=== PATIENT | female | born 1965 | race Caucasian/White ===

== ENCOUNTER 2016-06-19 12:58 | Emergency (ER) | payer OTHER ==
[~2016-06-19] VITALS: Ht 160 cm; Wt 93.0 kg
[~2016-06-19 12:58] MED LIST: NAPR250T57 PO; PROT40TA PO
[2016-06-19 13:02] VITALS: BP 132/82; PULSE 108; RESP 16; TEMP 99.8; O2SAT 94
[2016-06-19] MEDS ORDERED: HTN MED (13:12)
[2016-06-19] MEDS ORDERED: ONDANSETRON ODT 4 MG TAB PO ONE (13:30)
--- NOTE | 2016-06-19 13:31 | PD ---
HPI Chief Complaint: Cold / Flu Symptoms Time Seen by Provider: 13:11 Travel History International Travel<30 days: No Contact w/Intl Traveler<30days: No Traveled to known affect area: No History of Present Illness HPI 51-year-old female presents with body aches, cough, congestion, nausea and general ill feeling since getting exposed to someone sick at work. She states that she feels worse when she moves around. She denies other modifying factors. She has taken patd-dhp-deeirma medications with moderate relief. She last took something for pain at 430 this am. She denies other concurrent complaints. Duration is 2 days. PFSH Past Medical History Anxiety: No Depression: No Heart Rhythm Problems: No Cancer: No Cardiac Catheterization: No Cardiovascular Problems: No High Cholesterol: No Congestive Heart Failure: No Diabetes: No Diminished Hearing: No Endocrine: No Genitourinary: No Hepatitis: No Hiatal Hernia: No Immune Disorder: No Medical other: Yes (ANEMIA DUE TO DUB) Musculoskeletal: Yes (NECK PAIN) Neurologic: No Psychiatric: No Reproductive: Yes (DUB) Respiratory: No Thyroid Disease: No ?: Not Menopausal: Yes : 1 Para: 1 Miscarriage: 0 : 0 Past Surgical History AICD: No Coronary Artery Bypass Graft: No Gynecologic Surgery: Yes (UTERINE ABLATION AND PARTIAL HYSTERECTOMY LAST YEAR) Hysterectomy: Yes (PARTIAL / 2012) Joint Replacement: No Pacemaker: No Other Surgery: Yes Social History Alcohol Use: No Tobacco Use: No Substance Use: No Allergies-Medications (Allergen,Severity, Reaction): Coded Allergies: No Known Allergies (Unverified , 06/19/16) Reported Meds & Prescriptions Reported Meds & Active Scripts Active Zofran Odt (Ondansetron Odt) 4 Mg Tab 4 Mg SL Q6HR PRN Reported [Htn Med] Review of Systems Except as stated in HPI: all other systems reviewed are Neg Physical Exam Narrative GENERAL: Well-nourished, well-developed patient. Well-appearing Back: No CVA tenderness, no midline pain SKIN: Warm and dry. HEAD: Normocephalic and atraumatic. EYES: No injection or drainage. ENT: No nasal drainage noted. Bilateral TMs clear, posterior oropharynx without exudate or erythema NECK: Supple, trachea midline. No meningeal signs CARDIOVASCULAR: Regular rate and rhythm RESPIRATORY: Breath sounds equal bilaterally. No accessory muscle use. GASTROINTESTINAL: Abdomen soft, non-tender, nondistended. EXTREMITIES: No edema. NEUROLOGICAL: Awake and alert. Motor and sensory grossly within normal limits. Normal speech. Data Data Last Documented VS Vital Signs Date Time Temp Pulse Resp B/P Pulse Ox O2 Delivery O2 Flow Rate FiO2 06/19/16 13:02 99.8 108 16 132/82 94 Orders Chest, Pa & Lat (06/19/16 ) Ondansetron Odt (Zofran Odt) (06/19/16 13:30) Ibuprofen (Motrin) (06/19/16 13:45) MDM Medical Decision Making Medical Screen Exam Complete: Yes Emergency Medical Condition: Yes Medical Record Reviewed: Yes (past history confirmed) Interpretation(s) Last 24 hours Impressions Chest X-Ray 06/19/16 0000 Signed Impressions: Service Date/Time: Sunday, June 19, 2016 13:55 - CONCLUSION: Normal examination. Teri Lucia MD Differential Diagnosis URI, seasonal allergies, pneumonia, gastroenteritis Narrative Course Will check chest x-ray and dose with Zofran and reevaluate cxr no acute, Patient denies any new complaints and states that they are feeling better. Patient happy with care, all questions answered. Patient knows that follow up is incumbent on them and to return to the emergency room immediately if new or worsening symptoms develop. Patient given strict return precautions, vitals reviewed and are normal, agrees to further workup as an outpatient. Diagnosis Primary Impression: Upper respiratory infection Qualified Code: J06.9 - Upper respiratory tract infection, unspecified type Patient Instructions: General Instructions Additional Instructions: return as needed, zofran as needed, alternate tylenol and motrin Med/Other Pt SpecificInfo: Prescription(s) given Scripts Ondansetron Odt (Zofran Odt)4 Mg Tab4 Mg SL Q6HR PRN (Nausea/Vomiting) #10 TAB Prov:Irasema Del Rio MD 06/19/16 Disposition: 01 DISCHARGE HOME Condition: Stable Irasema Del Rio MD Jun 19, 2016 13:31
[2016-06-19] MEDS ORDERED: IBUPROFEN 600 MG TAB PO ONE (13:45)
--- NOTE | 2016-06-19 14:15 | RADHPO ---
EXAM DATE/TIME: 06/19/2016 13:55 [facility] COMPARISON: No previous studies available for comparison. INDICATIONS : Cough, short of breath MEDICAL HISTORY : Hypertension. SURGICAL HISTORY : None. ENCOUNTER: Initial ACUITY: 2 days PAIN SCORE: 0/10 LOCATION: Bilateral chest FINDINGS: PA and lateral views of the chest demonstrate the lungs to be symmetrically aerated without evidence of mass, infiltrate or effusion. The cardiomediastinal contours are unremarkable. Osseous structure s are intact. CONCLUSION: Normal examination. Teri Lucia MD on June 19, 2016 at 14:13 Board Certified Radiologist. This report was verified electronically.
[2016-06-19] MEDS ORDERED: ZOFR4TAB3 SL (14:26)
== END 2016-06-19 14:36 | disposition home or self-care (01) ==
LOC: PHED 12:58
DX: J06.9 Acute upper respiratory infection, unspecified (principal)
CPT/HCPCS: 71020; 99283

== ENCOUNTER 2016-11-03 14:29 | Emergency (ER) | payer OTHER ==
[~2016-11-03] VITALS: Ht 160 cm; Wt 90.4 kg
[~2016-11-03 14:29] MED LIST changes: +HTN MED; -NAPR250T57 PO; -PROT40TA PO; +ZOFR4TAB3 SL
[2016-11-03 14:40] VITALS: BP 126/82; PULSE 131; RESP 16; TEMP 100.4; O2SAT 97
[2016-11-03] MEDS ORDERED: SODIUM CHLOR 0.9% 1000 ML INJ 1,000 ML IV SCH (15:12)
[2016-11-03] MEDS ORDERED: SODIUM CHLORIDE 0.9% FLUSH 10 ML FLUSH IV FLUSH PRN (15:15)
[2016-11-03] MEDS ORDERED: LISI2.5T3 PO ×2 (15:17)
[2016-11-03 15:26] LABS: BLOOD, URINE SMALL (NEG); GLUCOSE,URINE NEG (NEG); KETONE, URINE 40 mg/dL (NEG); NITRITE,URINE NEG (NEG); PH, URINE 5.5 (5.0-8.5)
[2016-11-03 15:27] LABS: AUTOMATED NEUTROPHIL # 12.1 TH/MM3 (1.8-7.7); BASOPHIL % 0.3 % (0.0-2.0); EOSINOPHIL # 0.1 TH/MM3 (0-0.4); EOSINOPHIL % 0.4 % (0.0-4.0); HEMATOCRIT 43.5 % (35.0-46.0); LYMPH % 6.5 % (9.0-44.0); LYMPHOCYTE # 0.9 TH/MM3 (1.0-4.8); MEAN CORPUSCULAR HEMOGLOBIN 27.2 PG (27.0-34.0); MEAN CORPUSCULAR HGB CONC 32.8 % (32.0-36.0); MONO % 5.4 % (0.0-8.0); NEUT % 87.4 % (16.0-70.0); PLATELET COUNT 266 TH/MM3 (150-450); RED BLOOD COUNT 5.24 MIL/MM3 (4.00-5.30); RED CELL DISTRIBUTION WIDTH 13.5 % (11.6-17.2); WHITE BLOOD COUNT 13.8 TH/MM3 (4.0-11.0)
[2016-11-03 15:28] LABS: HEMO FLAGS DIFF FINAL
[2016-11-03 15:34] VITALS: O2SAT 98
--- NOTE | 2016-11-03 15:34 | PD ---
HPI Chief Complaint: Abdominal Pain Time Seen by Provider: 14:42 Travel History International Travel<30 days: No Contact w/Intl Traveler<30days: No Traveled to known affect area: No History of Present Illness HPI So 51-year-old woman who presents to the emergency department complaining of left lower quadrant pain started yesterday. She states pain came on fairly abruptly. She had the pain all night. She is on the left lower quadrant tenderness. She went to urgent care today and they said she had a fever up to 102.4 with tachycardia. She was sent to the emergency department. Last bowel movement was normal. She has changed her diet abruptly in the past week eating a whole a lot of salad. Only abdominal surgery was a hysterectomy. No history of colonoscopy. No history of diverticulitis. No other complaints. History Past Medical History Narrative Medical Hypertension Tetanus Vaccination: < 5 Years Influenza Vaccination: No Menopausal: Yes : 1 Para: 1 Social History Alcohol Use: No Tobacco Use: No Allergies-Medications (Allergen,Severity, Reaction): Coded Allergies: No Known Allergies (Unverified , 11/03/16) Reported Meds & Prescriptions Reported Meds & Active Scripts Active Reported Lisinopril 2.5 Mg Tab 2.5 Mg PO DAILY Review of Systems Except as stated in HPI: all other systems reviewed are Neg Physical Exam Narrative GENERAL: Well-appearing 50 year-old woman, no acute distress. SKIN: Focused skin assessment warm/dry. HEAD: Atraumatic. Normocephalic. CARDIOVASCULAR: Regular rate and rhythm. No murmur appreciated. RESPIRATORY: No accessory muscle use. Clear to auscultation. Breath sounds equal bilaterally. GASTROINTESTINAL: Abdomen is flat and soft. There is mild to moderate low four- quadrant tenderness. No rebound or guarding. MUSCULOSKELETAL: No obvious deformities. No clubbing. No cyanosis. No edema. NEUROLOGICAL: Awake and alert. No obvious cranial nerve deficits. Motor grossly within normal limits. Normal speech. PSYCHIATRIC: Appropriate mood and affect; insight and judgment normal. Data Data Last Documented VS Vital Signs Date Time Temp Pulse Resp B/P Pulse Ox O2 Delivery O2 Flow Rate FiO2 11/03/16 15:34 98 Room Air 11/03/16 14:40 100.4 131 16 126/82 Orders Complete Blood Count With Diff (11/03/16 15:12) Comprehensive Metabolic Panel (11/03/16 15:12) Lipase (11/03/16 15:12) Lactic Acid (11/03/16 15:12) Urinalysis - C+S If Indicated (11/03/16 15:12) Ct Abd/Pel W Iv Contrast(Rout) (11/03/16 15:12) Iv Access Insert/Monitor (11/03/16 15:12) Ecg Monitoring (11/03/16 15:12) Oximetry (11/03/16 15:12) Sodium Chlor 0.9% 1000 Ml Inj (Ns 1000 M (11/03/16 15:12) Sodium Chloride 0.9% Flush (Ns Flush) (11/03/16 15:15) Electrocardiogram (11/03/16 15:12) Iohexol 350 Inj (Omnipaque 350 Inj) (11/03/16 16:09) Labs Laboratory Tests Test 11/03/16 15:00 White Blood Count 13.8 TH/MM3 Red Blood Count 5.24 MIL/MM3 Hemoglobin 14.3 GM/DL Hematocrit 43.5 % Mean Corpuscular Volume 83.0 FL Mean Corpuscular Hemoglobin 27.2 PG Mean Corpuscular Hemoglobin 32.8 % Concent Red Cell Distribution Width 13.5 % Platelet Count 266 TH/MM3 Mean Platelet Volume 8.0 FL Neutrophils (%) (Auto) 87.4 % Lymphocytes (%) (Auto) 6.5 % Monocytes (%) (Auto) 5.4 % Eosinophils (%) (Auto) 0.4 % Basophils (%) (Auto) 0.3 % Neutrophils # (Auto) 12.1 TH/MM3 Lymphocytes # (Auto) 0.9 TH/MM3 Monocytes # (Auto) 0.7 TH/MM3 Eosinophils # (Auto) 0.1 TH/MM3 Basophils # (Auto) 0.0 TH/MM3 CBC Comment DIFF FINAL Differential Comment Urine Collection Type CLEAN CATCH Urine Color YELLOW Urine Turbidity CLEAR Urine pH 5.5 Urine Specific [place] 1.023 Urine Protein NEG mg/dL Urine Glucose (UA) NEG mg/dL Urine Ketones 40 mg/dL Urine Occult Blood SMALL Urine Nitrite NEG Urine Bilirubin NEG Urine Leukocyte Esterase NEG Urine RBC 0-3 /hpf Urine WBC 3-5 /hpf Urine Squamous Epithelial 6-8 /hpf Cells Urine Bacteria OCC /hpf Urine Mucus FEW /lpf Microscopic Urinalysis Comment CULT NOT INDICATED Urine Collection Time 15:00 Sodium Level 138 MEQ/L Potassium Level 3.6 MEQ/L Chloride Level 104 MEQ/L Carbon Dioxide Level 25.3 MEQ/L Anion Gap 9 MEQ/L Blood Urea Nitrogen 14 MG/DL Creatinine 0.96 MG/DL Estimat Glomerular Filtration 61 ML/MIN Rate Random Glucose 108 MG/DL Lactic Acid Level 1.0 mmol/L Calcium Level 9.1 MG/DL Total Bilirubin 0.6 MG/DL Aspartate Amino Transf 14 U/L (AST/SGOT) Alanine Aminotransferase 26 U/L (ALT/SGPT) Alkaline Phosphatase 116 U/L Total Protein 7.8 GM/DL Albumin 3.9 GM/DL Lipase 217 U/L [facility] Medical Decision Making Medical Screen Exam Complete: Yes Emergency Medical Condition: Yes Interpretation(s) My review of EKG: Sinus tachycardia rate of 111, leftward axis, normal axis, some inferior Q waves, poor R-wave progression, no definite evidence of acute ischemia. LABS: CBC remarkable for mild leukocytosis. CMP unremarkable. Lactate 1.0 Lipase normal UA occasional squames, occasional bacteria. CT abdomen and pelvis: Acute diverticulitis of the sigmoid colon. Trace free fluid in the pelvis. Differential Diagnosis Diverticulitis, UTI, colitis, bacteremia or sepsis, other Narrative Course Medical decision making INITIAL: 51 year-old woman presents to the emergency department by unable four- quadrant abdominal pain. High fever and tachycardia. Concern for diverticulitis. Possible sepsis. We'll check labs, IV fluids, CT scan, UA, reassess. Diagnosis Primary Impression: Acute diverticulitis Additional Instructions: Take Augmentin as prescribed. Take acetaminophen or ibuprofen as needed for pain. Return to the emergency department any worsening abdominal pain, feeling more sick, bloody diarrhea, or any other new or worsening symptoms. Med/Other Pt SpecificInfo: Prescription(s) given Scripts Amoxicillin-Clavulanate (Augmentin)875-125 Mg Tab1 Tab PO BID 10 Days Ref 0 Prov:Morris Orlando MD 11/03/16 Disposition: 01 DISCHARGE HOME Condition: Stable Morris Orlando MD Nov 03, 2016 15:34
[2016-11-03 15:37] LABS: CHLORIDE 104 MEQ/L (98-107); POTASSIUM 3.6 MEQ/L (3.5-5.1); SODIUM (NA) 138 MEQ/L (136-145)
[2016-11-03 15:41] LABS: ANION GAP 9 MEQ/L (5-15); BICARBONATE 25.3 MEQ/L (21.0-32.0); BLOOD UREA NITROGEN 14 MG/DL (7-18)
[2016-11-03 15:43] LABS: METHOD OF COLLECTION CLEAN CATCH; URINE COLOR YELLOW (YELLW/STRAW)
[2016-11-03 15:44] LABS: ALT (GPT) 26 U/L (10-53); AST (GOT) 14 U/L (15-37); BACTERIA, URINE OCC /hpf; COMMENT (UR) CULT NOT INDICATED; CULTURE IF INDICATED CULT NOT INDICATED; GLOMERULAR FILTRATION RATE 61 ML/MIN (>89); MUCUS URINE FEW /lpf (OCC); RBC, URINE 0-3 /hpf (0-3)
[2016-11-03 15:45] LABS: TOTAL BILIRUBIN ADULT 0.6 MG/DL (0.2-1.0)
[2016-11-03 15:47] LABS: ALKALINE PHOSPHATASE 116 U/L (45-117)
[2016-11-03] MEDS ORDERED: IOHEXOL 350 MG/ML 10 ML VIAL (for RAD DIAG) IV ONE (16:09)
--- NOTE | 2016-11-03 16:32 | RADRPT ---
EXAM DATE/TIME: 11/03/2016 15:59 [facility] COMPARISON: CT ABDOMEN & PELVIS W CONTRAST, March 14, 2014, 20:28. INDICATIONS : Left lower quadrant pain. Nausea and fever. IV CONTRAST: 85 cc Omnipaque 350 (iohexol) IV ORAL CONTRAST: No oral contrast ingested. RADIATION DOSE: 20.26 CTDIvol (mGy) MEDICAL HISTORY : Hypertension. SURGICAL HISTORY : Hysterectomy. ENCOUNTER: Initial ACUITY: 1 day PAIN SCALE: 7/10 LOCATION: Left lower quadrant TECHNIQUE: Volumetric scanning of the abdomen and pelvis was performed. Using automated exposure control and ad justment of the mA and/or kV according to patient size, radiation dose was kept as low as reasonably achievable to obtain optimal diagnostic quality images. DICOM format image data is available electro nically for review and comparison. FINDINGS: LOWER LUNGS: The visualized lower lungs are clear. LIVER: Homogeneous density without lesion. There is no dilation of the biliary tree. No calcified gallston es. SPLEEN: Normal size without lesion. PANCREAS: Within normal limits. KIDNEYS: Normal in size and shape. There is no mass, stone or hydronephrosis. ADRENAL GLANDS: Within normal limits. VASCULAR: There is no aortic aneurysm. BOWEL/MESENTERY: The bowel gas pattern is within normal limits. No evidence of obstruction. However, there is diffuse inflammatory changes involving the sigmoid colon in the left lower quadrant characteristic for divert iculitis. There is no evidence of free air. There is a trace of fluid deep in the pelvis. No loculate d fluid collections are seen. There are scattered diverticula throughout the sigmoid and descending c olon. ABDOMINAL WALL: Within normal limits. RETROPERITONEUM: There is no lymphadenopathy. BLADDER: No wall thickening or mass. REPRODUCTIVE: Within normal limits. INGUINAL: There is no lymphadenopathy or hernia. MUSCULOSKELETAL: Within normal limits for patient age. CONCLUSION: Acute diverticulitis of the sigmoid colon. Trace of fluid in the pelvis. Jimmie Ruiz MD on November 03, 2016 at 16:13 Board Certified Radiologist. This report was verified electronically.
[2016-11-03 16:42] VITALS: BP 99/71; PULSE 104; RESP 18; O2SAT 98
[2016-11-03] MEDS ORDERED: AUGM875T3 PO (16:49)
[2016-11-03] MEDS ORDERED: AMOXICILLIN/CLAVULANATE K 875 MG TAB PO ONE (17:00)
[2016-11-03] MEDS ORDERED: IBUPROFEN 600 MG TAB PO ONE (17:00)
--- NOTE | 2016-11-04 17:29 | EKG ---
Date Performed: 11/03/2016 Time Performed: 15:19:52 PTAGE: 51 years EKG: SINUS TACHYCARDIA POSSIBLE ANTERIOR MYOCARDIAL INFARCTION Poor R wave progression, can not exclude anterior myocardial Infarction of undetermined age. When compared to previous tracing, r wave progression is more Abnormal in the precordial leads. Heart rate is faster. ABNORMAL ECG PREVIOUS TRACING : 01/21/2013 10.48 DOCTOR: Gabe Ralph Interpretating Date/Time 11/04/2016 17:27:40
== END 2016-11-03 17:29 | disposition home or self-care (01) ==
LOC: PHED 14:29
DX: K57.32 Diverticulitis of large intestine without perforation or abscess without bleeding (principal); R00.0 Tachycardia, unspecified; R94.31 Abnormal electrocardiogram [ECG] [EKG]; I10 Essential (primary) hypertension
CPT/HCPCS: 74177; 80053; 81001; 83605; 83690; 85025; 93005; 96360; 99285; J7030; Q9967

== ENCOUNTER 2016-11-05 08:14 | Inpatient (IN) | payer OTHER ==
[2016-11-05] VITALS (11 sets, daily range): BP systolic 114–156; BP diastolic 62–79; PULSE 98–120; RESP 16–20; TEMP 97.5–100.9; O2SAT 95–100
[~2016-11-05] VITALS: Ht 160 cm; Wt 92.3 kg
[~2016-11-05 08:14] MED LIST changes: +AUGM875T3 PO; +LISI2.5T3 PO
--- NOTE | 2016-11-05 08:34 | PD ---
HPI Chief Complaint: Abdominal Pain Time Seen by Provider: 08:32 Travel History International Travel<30 days: No Contact w/Intl Traveler<30days: No Traveled to known affect area: No History of Present Illness HPI Patient presents with complaints of worsening abdominal pain. Reports evaluation 2 days ago with diagnosis of diverticulitis. States she is compliant with her antibiotics. Reports increased severity of pain with abdominal cramping and associated nausea. States she's had poor fluid and food intake. She is passing gas. Denies bowel movements. Denies any blood per rectum. Positive history for hysterectomy. No previous history of colonoscopy. On her previous evaluation she was tachycardic with a fever. PFSH Past Medical History Anxiety: No Depression: No Heart Rhythm Problems: No Cancer: No Cardiac Catheterization: No Cardiovascular Problems: No High Cholesterol: No Congestive Heart Failure: No Diabetes: No Diminished Hearing: No Endocrine: No Genitourinary: No Hepatitis: No Hiatal Hernia: No Hypertension: Yes Immune Disorder: No Musculoskeletal: Yes (NECK PAIN) Neurologic: No Psychiatric: No Reproductive: Yes (DUB) Respiratory: No Thyroid Disease: No ?: Not Menopausal: Yes : 1 Para: 1 Miscarriage: 0 : 0 Past Surgical History AICD: No Coronary Artery Bypass Graft: No Gynecologic Surgery: Yes (UTERINE ABLATION AND PARTIAL HYSTERECTOMY LAST YEAR) Hysterectomy: Yes (PARTIAL / 2012) Joint Replacement: No Pacemaker: No Other Surgery: Yes Social History Alcohol Use: No Tobacco Use: No Substance Use: No Allergies-Medications (Allergen,Severity, Reaction): Coded Allergies: No Known Allergies (Unverified , 11/05/16) Reported Meds & Prescriptions Reported Meds & Active Scripts Active Augmentin (Amoxicillin-Clavulanate) 875-125 Mg Tab 1 Tab PO BID 10 Days Reported Lisinopril 2.5 Mg Tab 2.5 Mg PO DAILY Review of Systems General / Constitutional: No: Fever Eyes: No: Visual changes HENT: No: Headaches Cardiovascular: No: Chest Pain or Discomfort Respiratory: No: Shortness of Breath Gastrointestinal: Positive: Nausea, Abdominal Pain Genitourinary: No: Dysuria Musculoskeletal: No: Pain Skin: No Rash Neurologic: No: Weakness Psychiatric: No: Depression Endocrine: No: Polydipsia Hematologic/Lymphatic: No: Easy Bruising Physical Exam Narrative GENERAL: Well-nourished, well-developed patient. SKIN: Focused skin assessment warm/dry. HEAD: Normocephalic. EYES: No scleral icterus. No injection or drainage. NECK: Supple, trachea midline. No JVD or lymphadenopathy. CARDIOVASCULAR: Regular rate and rhythm without murmurs, gallops, or rubs. RESPIRATORY: Breath sounds equal bilaterally. No accessory muscle use. GASTROINTESTINAL: Abdomen soft, diffusely tender, nondistended. MUSCULOSKELETAL: No cyanosis, or edema. BACK: Nontender without obvious deformity. No CVA tenderness. Data Data Last Documented VS Vital Signs Date Time Temp Pulse Resp B/P Pulse Ox O2 Delivery O2 Flow Rate FiO2 11/05/16 13:00 116 16 141/67 100 11/05/16 08:50 99.8 Orders Complete Blood Count With Diff (11/05/16 08:41) Comprehensive Metabolic Panel (11/05/16 08:41) Lipase (11/05/16 08:41) Lactic Acid (11/05/16 08:41) Urinalysis - C+S If Indicated (11/05/16 08:41) Ct Abd/Pel W Iv Contrast(Rout) (11/05/16 08:41) Iv Access Insert/Monitor (11/05/16 08:41) Ecg Monitoring (11/05/16 08:41) Oximetry (11/05/16 08:41) NPO (11/05/16 08:41) Pantoprazole Inj (Protonix Inj) (11/05/16 08:45) Sodium Chlor 0.9% 1000 Ml Inj (Ns 1000 M (11/05/16 08:41) Sodium Chloride 0.9% Flush (Ns Flush) (11/05/16 08:45) Famotidine Inj (Pepcid Inj) (11/05/16 08:45) Dicyclomine Inj (Bentyl Inj) (11/05/16 08:45) Ketorolac Inj (Toradol Inj) (11/05/16 08:45) Hydromorphone Pf Inj (Dilaudid Pf Inj) (11/05/16 08:45) Iohexol 350 Inj (Omnipaque 350 Inj) (11/05/16 10:24) Invasive Rad Dept Consult (11/05/16 ) Metronidazole 500 Mg Inj (Flagyl 500 Mg (11/05/16 11:00) Sodium Chlor 0.9% 1000 Ml Inj (Ns 1000 M (11/05/16 10:58) Levofloxacin 500 Mg Premix Inj (Levaquin (11/05/16 11:00) Invasive Rad Dept Consult (11/05/16 ) Hydromorphone Pf Inj (Dilaudid Pf Inj) (11/05/16 12:45) Ondansetron Inj (Zofran Inj) (11/05/16 13:15) Labs Laboratory Tests Test 11/05/16 11/05/16 08:55 11:30 White Blood Count 7.5 TH/MM3 Red Blood Count 4.63 MIL/MM3 Hemoglobin 12.8 GM/DL Hematocrit 38.0 % Mean Corpuscular Volume 82.1 FL Mean Corpuscular Hemoglobin 27.6 PG Mean Corpuscular Hemoglobin 33.6 % Concent Red Cell Distribution Width 13.1 % Platelet Count 230 TH/MM3 Mean Platelet Volume 7.1 FL Neutrophils (%) (Auto) 81.0 % Lymphocytes (%) (Auto) 11.6 % Monocytes (%) (Auto) 5.4 % Eosinophils (%) (Auto) 1.1 % Basophils (%) (Auto) 0.9 % Neutrophils # (Auto) 6.0 TH/MM3 Lymphocytes # (Auto) 0.9 TH/MM3 Monocytes # (Auto) 0.4 TH/MM3 Eosinophils # (Auto) 0.1 TH/MM3 Basophils # (Auto) 0.1 TH/MM3 CBC Comment DIFF FINAL Differential Comment Sodium Level 142 MEQ/L Potassium Level 4.1 MEQ/L Chloride Level 107 MEQ/L Carbon Dioxide Level 23.8 MEQ/L Anion Gap 11 MEQ/L Blood Urea Nitrogen 12 MG/DL Creatinine 0.79 MG/DL Estimat Glomerular Filtration 76 ML/MIN Rate Random Glucose 105 MG/DL Lactic Acid Level 1.1 mmol/L Calcium Level 9.0 MG/DL Total Bilirubin 0.6 MG/DL Aspartate Amino Transf 11 U/L (AST/SGOT) Alanine Aminotransferase 20 U/L (ALT/SGPT) Alkaline Phosphatase 99 U/L Total Protein 6.7 GM/DL Albumin 3.1 GM/DL Lipase 118 U/L Urine Collection Type CLEAN CATCH Urine Color YELLOW Urine Turbidity CLEAR Urine pH 5.5 Urine Specific [place] GREATER THAN 1.035 Urine Protein TRACE mg/dL Urine Glucose (UA) NEG mg/dL Urine Ketones 80 OR GREATER mg/dL Urine Occult Blood TRACE Urine Nitrite NEG Urine Bilirubin NEG Urine Leukocyte Esterase NEG Urine RBC 0-3 /hpf Urine Squamous Epithelial 6-8 /hpf Cells Urine Amorphous Sediment FEW Microscopic Urinalysis Comment CULT NOT INDICATED Urine Collection Time 1130 MDM Medical Decision Making Medical Screen Exam Complete: Yes Emergency Medical Condition: Yes Differential Diagnosis Diverticulitis, complicated diverticulitis, colitis, small bowel obstruction, malingering Narrative Course Assessment and plan discussed with patient bedside, previous evaluation reviewed. Previous CT abdomen and pelvis: Acute diverticulitis of the sigmoid colon. Trace free fluid in the pelvis. Today she is mildly tachycardic and afebrile. Last 72 hours Impressions Abdomen/Pelvis CT 11/05/16 0841 Signed Impressions: Service Date/Time: Monday, November 05, 2016 09:33 - CONCLUSION: 1. New small abscess in the left mid lateral pelvis with air-fluid level. 2. Acute diverticulitis again noted with mild increase in surrounding inflammatory change. Vish Neves MD Physician Communication Physician Communication Spoke with Dr. Hernández who is aware. Spoke with Dr. Neves /reading radiologist, awaiting Dr Perez / interventional radiologist to assess accessibility for percutaneous drainage. Since patient has failed outpatient treatment recommendations for transfer to the main hospital were initiated. Spoke with Dr. Iverson who is in agreement will admit and transfer. Diagnosis Primary Impression: Diverticulitis large intestine Qualified Code: K57.20 - Diverticulitis of large intestine with abscess, unspecified bleeding status Nahid Howard MD Nov 05, 2016 08:34
[2016-11-05] MEDS ORDERED: SODIUM CHLOR 0.9% 1000 ML INJ 1,000 ML IV SCH ×2 (08:41→10:58)
[2016-11-05] MEDS ORDERED: KETOROLAC TROMETHAMINE 30 MG/ML (IVP) VIAL IVP ONE (08:45)
[2016-11-05] MEDS ORDERED: SODIUM CHLORIDE 0.9% FLUSH 10 ML FLUSH IV FLUSH PRN ×2 (08:45→14:15)
[2016-11-05] MEDS ORDERED: PANTOPRAZOLE SODIUM 40 MG VIAL IVP ONE (08:45)
[2016-11-05] MEDS ORDERED: HYDROmorphone HCL PF 1 MG/ML VIAL IV PUSH ONE ×2 (08:45→12:45)
[2016-11-05] MEDS ORDERED: FAMOTIDINE 20 MG/2 ML VIAL IV PUSH ONE (08:45)
[2016-11-05] MEDS ORDERED: DICYCLOMINE HCL 20 MG/2 ML VIAL IM ONE (08:45)
[2016-11-05 09:06] LABS: BASOPHIL # 0.1 TH/MM3 (0-0.2); BASOPHIL % 0.9 % (0.0-2.0); EOSINOPHIL # 0.1 TH/MM3 (0-0.4); EOSINOPHIL % 1.1 % (0.0-4.0); LYMPH % 11.6 % (9.0-44.0); LYMPHOCYTE # 0.9 TH/MM3 (1.0-4.8); MEAN CELL VOLUME 82.1 FL (80.0-100.0); MEAN CORPUSCULAR HEMOGLOBIN 27.6 PG (27.0-34.0); MEAN CORPUSCULAR HGB CONC 33.6 % (32.0-36.0); MONO % 5.4 % (0.0-8.0); PLATELET COUNT 230 TH/MM3 (150-450); RED BLOOD COUNT 4.63 MIL/MM3 (4.00-5.30); RED CELL DISTRIBUTION WIDTH 13.1 % (11.6-17.2); WHITE BLOOD COUNT 7.5 TH/MM3 (4.0-11.0)
[2016-11-05 09:08] LABS: HEMO FLAGS DIFF FINAL
[2016-11-05 09:13] LABS: CHLORIDE 107 MEQ/L (98-107); POTASSIUM 4.1 MEQ/L (3.5-5.1); SODIUM (NA) 142 MEQ/L (136-145)
[2016-11-05 09:21] LABS: ALT (GPT) 20 U/L (10-53); ANION GAP 11 MEQ/L (5-15); AST (GOT) 11 U/L (15-37); BICARBONATE 23.8 MEQ/L (21.0-32.0); BLOOD UREA NITROGEN 12 MG/DL (7-18); GLOMERULAR FILTRATION RATE 76 ML/MIN (>89)
[2016-11-05 09:35] LABS: ALKALINE PHOSPHATASE 99 U/L (45-117); TOTAL BILIRUBIN ADULT 0.6 MG/DL (0.2-1.0)
--- NOTE | 2016-11-05 09:54 | RADRPT ---
EXAM DATE/TIME: 11/05/2016 09:33 [facility] COMPARISON: CT ABDOMEN & PELVIS W CONTRAST, November 03, 2016, 15:59. INDICATIONS : Diffuse abdominal pain. Followup acute diverticulitis. IV CONTRAST: 96 cc Omnipaque 350 (iohexol) IV ORAL CONTRAST: No oral contrast ingested. RADIATION DOSE: 19.95 CTDIvol (mGy) MEDICAL HISTORY : Diverticulitis. Hypertension. SURGICAL HISTORY : Uterine ablation, partial hysterectomy. ENCOUNTER: Initial ACUITY: 3 days PAIN SCALE: 10/10 LOCATION: Bilateral abdomen TECHNIQUE: Volumetric scanning of the abdomen and pelvis was performed. Using automated exposure control and ad justment of the mA and/or kV according to patient size, radiation dose was kept as low as reasonably achievable to obtain optimal diagnostic quality images. DICOM format image data is available electro nically for review and comparison. FINDINGS: LOWER LUNGS: The visualized lower lungs are clear. LIVER: Homogeneous density without lesion. There is no dilation of the biliary tree. No calcified gallston es. SPLEEN: Normal size without lesion. PANCREAS: Within normal limits. KIDNEYS: Normal in size and shape. There is no mass, stone or hydronephrosis. ADRENAL GLANDS: Within normal limits. VASCULAR: There is no aortic aneurysm. BOWEL/MESENTERY: Inflammatory changes again noted surrounding the distal descending colon and proximal sigmoid colon w hich is increased mildly from the prior study. There is increased stranding in the adjacent mesentery and there is a new small developing abscess in the left mid pelvis. This measures up to 2.8 x 2 cm i n diameter and demonstrates an air-fluid level. The this was not present on the prior study. There is no evidence of obstruction. ABDOMINAL WALL: Within normal limits. RETROPERITONEUM: There is no lymphadenopathy. BLADDER: No wall thickening or mass. REPRODUCTIVE: Within normal limits. INGUINAL: There is no lymphadenopathy or hernia. MUSCULOSKELETAL: Within normal limits for patient age. CONCLUSION: 1. New small abscess in the left mid lateral pelvis with air-fluid level. 2. Acute diverticulitis again noted with mild increase in surrounding inflammatory change. Vish Neves MD on November 05, 2016 at 9:46 Board Certified Radiologist. This report was verified electronically.
[2016-11-05] MEDS ORDERED: IOHEXOL 350 MG/ML 10 ML VIAL (for RAD DIAG) IV ONE (10:24)
[2016-11-05] MEDS ORDERED: metroNIDAZOLE 500 MG INJ 100 ML IV ONE (11:00)
[2016-11-05] MEDS ORDERED: LEVOFLOXACIN 500 MG PREMIX INJ 100 ML IV ONE (11:00)
[2016-11-05 11:42] LABS: BLOOD, URINE TRACE (NEG); GLUCOSE,URINE NEG (NEG); NITRITE,URINE NEG (NEG); PH, URINE 5.5 (5.0-8.5)
[2016-11-05 11:52] LABS: KETONE, URINE 80 OR GREATER mg/dL (NEG)
[2016-11-05 11:56] LABS: METHOD OF COLLECTION CLEAN CATCH; URINE COLOR YELLOW (YELLW/STRAW)
[2016-11-05 11:57] LABS: RBC, URINE 0-3 /hpf (0-3)
[2016-11-05 11:58] LABS: COMMENT (UR) CULT NOT INDICATED; COMMENT2 (UR) MUCOUS PRESENT; CULTURE IF INDICATED CULT NOT INDICATED
--- NOTE | 2016-11-05 12:18 | RADRPT ---
EXAM DATE/TIME: 11/05/2016 00:00 [facility] COMPARISON : CT examination of the abdomen and pelvis November 05, [address] examination of the abdomen and pelvis November 03, 2016. INDICATIONS : Pelvic diverticular abscess. Evaluate for drainage. IMAGING STUDIES: Is reveal a tiny deep pelvic fluid and air collection on the left associated with prominent diverticu lar inflammation of the sigmoid colon. At present, the collection is less than 2 cm in average diamet er and nearly 15 cm deep. ASSESSMENT: Very small deep pelvic abscess on the left associated with diverticulitis. The collection is really t oo small to except any type of drainage catheter at present. The patient is not a candidate at present for percutaneous abscess drainage. Joseph Perez MD on November 05, 2016 at 12:12 Board Certified Radiologist. This report was verified electronically.
[2016-11-05] MEDS ORDERED: ONDANSETRON HCL 4 MG/2 ML VIAL IV PUSH ONE (13:15)
[2016-11-05] MEDS ORDERED: ONDANSETRON HCL 4 MG/2 ML VIAL IV PRN (14:00)
[2016-11-05] MEDS ORDERED: ACETAMINOPHEN 325 MG TAB PO PRN ×2 (14:15)
[2016-11-05] MEDS ORDERED: NALOXONE HCL 0.4 MG/ML AMP IV PRN (14:15)
[2016-11-05] MEDS ORDERED: KETOROLAC TROMETHAMINE 30 MG/ML (IVP) VIAL IVP PRN ×2 (14:15)
[2016-11-05] MEDS ORDERED: PROMETHAZINE INJ 25 MG/ML VIAL IM ONE (14:30)
[2016-11-05] MEDS: SODIUM CHLOR 0.9% 1000 ML INJ 1,000 ML IV SCH (14:41)
--- NOTE | 2016-11-05 14:58 | HHI.HP ---
[facility] Amaya Herman MD Admission Diagnosis complicated diverticulitis Diagnoses: (1) Diverticulitis of intestine with abscess without bleeding Chief Complaint: Worsening abdominal pain Travel History International Travel<30 Days: No Contact w/Intl Traveler <30 Da: No Traveled to Known Affected Are: No History of Present Illness 51-year-old female recently diagnosed with diverticulitis on 11/03/16 and sent home on by mouth Augmentin, return to the ED for evaluation of worsening abdominal pain associated with worsening left lower quadrant abdominal pain rated 7/10 in intensity along with nausea and vomiting. She reported decrease by mouth intake over the past 2 days; however denies any febrile episode. CT abdomen reveals of finding of New small abscess in the left mid lateral pelvis with air-fluid level and Acute diverticulitis with mild increase inflammatory change. Patient denies any chest pain , GI bleed. Review of Systems Except as stated in HPI: all other systems reviewed are Neg Past Family Social History Past Medical History Hypertension History of DUB Past Surgical History Uterine ablation Partial hysterectomy Reported Medications Augmentin (Amoxicillin-Clavulanate) 875-125 Mg Tab 1 Tab PO BID 10 Days Reported Lisinopril 2.5 Mg Tab 2.5 Mg PO DAILY Allergies: Coded Allergies: No Known Allergies (Unverified , 11/05/16) Family History Mother has history of hypertension Social History Patient denies tobacco, alcohol or illicit drug intake Physical Exam Vital Signs Vital Signs Date Time Temp Pulse Resp B/P Pulse Ox O2 Delivery O2 Flow Rate FiO2 11/05/16 13:00 116 16 141/67 100 11/05/16 12:36 120 16 136/62 98 11/05/16 10:55 113 16 140/70 98 11/05/16 09:45 105 16 135/65 99 11/05/16 08:50 99.8 98 16 114/76 98 11/05/16 08:17 98.6 105 18 156/70 100 Physical Exam GENERAL: This is a well-nourished, well-developed patient, in mild distress. SKIN: No rashes, ecchymoses or lesions. Cool and dry. HEAD: Atraumatic. Normocephalic. No temporal or scalp tenderness. EYES: Pupils equal round and reactive. Extraocular motions intact. No scleral icterus. No injection or drainage. ENT: Nose without bleeding, purulent drainage or septal hematoma. Throat without erythema, tonsillar hypertrophy or exudate. Uvula midline. Airway patent. NECK: Trachea midline. No JVD or lymphadenopathy. Supple, nontender, no meningeal signs. CARDIOVASCULAR: Regular rate and rhythm without murmurs, gallops, or rubs. RESPIRATORY: Clear to auscultation. Breath sounds equal bilaterally. No wheezes , rales, or rhonchi. GASTROINTESTINAL: Abdomen soft, mildly tender LLQ, nondistended. No hepato- splenomegaly, or palpable masses. No guarding. MUSCULOSKELETAL: Extremities without clubbing, cyanosis, or edema. No joint tenderness, effusion, or edema noted. No calf tenderness. Negative Homans sign bilaterally. NEUROLOGICAL: Awake and alert. Cranial nerves II through XII intact. Motor and sensory grossly within normal limits. Five out of 5 muscle strength in all muscle groups. Normal speech. Laboratory Laboratory Tests Test 11/05/16 11/05/16 08:55 11:30 White Blood Count 7.5 Red Blood Count 4.63 Hemoglobin 12.8 Hematocrit 38.0 Mean Corpuscular Volume 82.1 Mean Corpuscular Hemoglobin 27.6 Mean Corpuscular Hemoglobin 33.6 Concent Red Cell Distribution Width 13.1 Platelet Count 230 Mean Platelet Volume 7.1 Neutrophils (%) (Auto) 81.0 Lymphocytes (%) (Auto) 11.6 Monocytes (%) (Auto) 5.4 Eosinophils (%) (Auto) 1.1 Basophils (%) (Auto) 0.9 Neutrophils # (Auto) 6.0 Lymphocytes # (Auto) 0.9 Monocytes # (Auto) 0.4 Eosinophils # (Auto) 0.1 Basophils # (Auto) 0.1 CBC Comment DIFF FINAL Differential Comment Sodium Level 142 Potassium Level 4.1 Chloride Level 107 Carbon Dioxide Level 23.8 Anion Gap 11 Blood Urea Nitrogen 12 Creatinine 0.79 Estimat Glomerular Filtration 76 Rate Random Glucose 105 Lactic Acid Level 1.1 Calcium Level 9.0 Total Bilirubin 0.6 Aspartate Amino Transf 11 (AST/SGOT) Alanine Aminotransferase 20 (ALT/SGPT) Alkaline Phosphatase 99 Total Protein 6.7 Albumin 3.1 Lipase 118 Urine Collection Type CLEAN CATCH Urine Color YELLOW Urine Turbidity CLEAR Urine pH 5.5 Urine Specific [place] GREATER THAN 1.035 Urine Protein TRACE Urine Glucose (UA) NEG Urine Ketones 80 OR GREATER Urine Occult Blood TRACE Urine Nitrite NEG Urine Bilirubin NEG Urine Leukocyte Esterase NEG Urine RBC 0-3 Urine Squamous Epithelial 6-8 Cells Urine Amorphous Sediment FEW Microscopic Urinalysis Comment CULT NOT INDICATED Urine Collection Time 1130 Result Diagram: 11/05/16 0855 11/05/16 0855 Imaging Last Impressions Abdomen/Pelvis CT 11/05/16 0841 Signed Impressions: Service Date/Time: Monday, November 05, 2016 09:33 - CONCLUSION: 1. New small abscess in the left mid lateral pelvis with air-fluid level. 2. Acute diverticulitis again noted with mild increase in surrounding inflammatory change. Vish Neves MD Assessment and Plan Problem List: (1) Diverticulitis of intestine with abscess without bleeding ICD Code: K57.80 Status: Acute Assessment and Plan 51-year-old female with Diverticulitis of intestine with abscess without bleeding CT abdomen noted and review by me with finding of New small abscess in the left mid lateral pelvis with air-fluid level. 2. Acute diverticulitis with mild increase General surgery consulted and recommended interventional radiology, however per interventional radiology abscess too small at this time for percutaneous drainage Status post Levaquin and Flagyl, continue with antibiotics pending culture Parenteral pain management, keep nothing by mouth with IV fluid hydration Hypertension Resume outpatient medications Vasotec when necessary Tachycardia Likely secondary to above secondary process Continue with management as in above DVT prophylaxis: Bilateral SCDs GI prophylaxis: PPI Code Status Full code Discussed Condition With Patient, ED physician Physician Certification 2 Midnight Certification Type: Admission for Inpatient Services Order for Inpatient Services The services are ordered in accordance with Medicare regulations or non- Medicare payer requirements, as applicable. In the case of services not specified as inpatient-only, they are appropriately provided as inpatient services in accordance with the 2-midnight benchmark. Estimated LOS (days): 2 days is the estimated time the patient will need to remain in the hospital, assuming treatment plan goals are met and no additional complications. Post-Hospital Plan: Not yet determined Luis Iverson MD Nov 05, 2016 14:58
[2016-11-05] MEDS: metroNIDAZOLE 500 MG INJ 100 ML IV SCH (19:05)
[2016-11-05] MEDS ORDERED: SODIUM CHLORID 0.9% 500 ML INJ 500 ML IV ONE (19:15)
[2016-11-05] MEDS: MORPHINE SULFATE 4 MG/ML INJ IV PUSH PRN ×2 (19:57→23:16)
[2016-11-05] MEDS: METOCLOPRAMIDE HCL 10 MG/2 ML VIAL IV PRN (19:57)
[2016-11-05] MEDS: ACETAMINOPHEN 1000 MG/100 ML VIAL IV SCH (19:58)
[2016-11-05] MEDS: SODIUM CHLORIDE 0.9% FLUSH 10 ML FLUSH IV FLUSH SCH (20:37)
--- NOTE | 2016-11-05 20:38 | MB ---
cc: DEVANTE MANZO MD, RYAN R. MD DATE OF CONSULTATION 11/05/16 REASON FOR CONSULTATION Complicated diverticulitis. BRIEF HISTORY This is a 51-year-old woman with a history of hypertension who began experiencing abdominal discomfort on . She initially bent over while at work and felt like maybe she had a pulled muscle, but the pain progressed. She went to Urgent Care, was found to have a fever and was tachycardic and was sent to the emergency department. There she underwent workup and had an elevated white count over 13,[address] scan which showed uncomplicated sigmoid diverticulitis. She was placed on Augmentin and her pain just worsened. She continued to have fever, nausea, vomiting, now dry heaves. Repeat CT scan demonstrates an approximate 2-cm fluid collection in the mesentery of the sigmoid colon that is not amenable to drainage. Recommendations were made for admission for IV antibiotics and surgical consultation was requested. ALLERGIES No known drug allergies. PAST MEDICAL HISTORY 1. Hypertension. 2. Partial hysterectomy and uterine ablation by Dr. Vidal. 3. Right shoulder surgery. ALLERGIES She says she gets significant nausea with emesis after anesthesia. MEDICATIONS Routine medications include Lisinopril 2.5 mg daily. SOCIAL HISTORY She has a 34-year-old child. She is accompanied by her mother and her fiance. She denies tobacco abuse, has an occasional glass of wine. She denies hepatitis or HIV risk factors. 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 FAMILY HISTORY Noncontributory. REVIEW OF SYSTEMS She denies unusual bleeding tendencies. She has no history of asthma, bronchitis, pneumonia. No history of heart disease, heart attack, chest pain, irregular heartbeat or heart murmur. She denies liver or kidney problems. She has never had stroke or seizure, diabetes or thyroid gland problems. She has never been treated with a blood thinning medication. PHYSICAL EXAMINATION VITAL SIGNS: Temperature is 100.9, pulse 112, respiratory rate 18, blood pressure 138/77, O2 sats 95%. HEENT: She is normocephalic, atraumatic. Pupils are 2-3 round and sluggishly reactive to light. Her sclerae are anicteric. Oropharynx is clear without mucosal lesions. She has good dentition. NECK: Supple without adenopathy. Midline trachea. No jugular venous distension. LUNGS: Sounds are clear and equal anteriorly bilaterally. HEART: Sounds show sinus tachycardia, no obvious murmur, rub or gallop. ABDOMEN: Mildly overweight, soft and nondistended. She has a healed small laparoscopy incision inferior umbilicus. She has some striae on the abdomen. She is tender in the left lower quadrant. She has no guarding or rebound. GENITAL/RECTAL: Exams were not repeated. EXTREMITIES: No cyanosis, clubbing or edema. She has equal radial and dorsalis pedis pulses. She has a tattoo on the dorsum of her left foot. NEUROLOGIC: She is awake, alert, oriented. She has equal bilateral general practice strength. There are no gross motor or sensory deficits. LABORATORY DATA White count of 7.5 with 81% neutrophils. Hemoglobin is 12.8, platelet count is 230. Potassium is 4.1, creatinine is 0.79, lactic acid was one, albumin is 3.1. Lipase is 118. Urinalysis was consistent with dehydration. Culture was not indicated. IMAGING STUDIES As discussed above. New small abscess in the left mid lateral pelvis with air-fluid level, acute diverticulitis noted with mild increase in the surrounding inflammatory change. ASSESSMENT AND PLAN A 51-year-old woman with acute sigmoid diverticulitis that has progressed on oral antibiotics. She is being admitted for IV antibiotics, pain medication, anti-nausea medication and rehydration. I have adjusted her pain medications, added ofirmev around the clock as well as morphine for breakthrough pain, level 4-10. I will add an IV fluid bolus in addition to what she has already received. We will follow her closely. I discussed with she and her mother and her fiance treatment of diverticulitis to try and avoid an emergency surgery of colon resection, colostomy and Bermudez's pouch. She understands that if everything goes as planned, she will improve on IV antibiotics, transition back to oral antibiotics and, when well, undergo colonoscopy before consideration of a more elective resection of the sigmoid colon. We will follow along. MD CHILO Barrett/ /7:03 PM /8:20 PM [facility]ITALJohanne
[2016-11-05] MEDS: TEMAZEPAM 15 MG CAP PO PRN (23:16)
[2016-11-06] VITALS (7 sets, daily range): BP systolic 90–147; BP diastolic 53–74; PULSE 82–123; RESP 18–20; TEMP 97.7–100; O2SAT 95–98
[2016-11-06] MEDS: METOCLOPRAMIDE HCL 10 MG/2 ML VIAL IV PRN (03:15)
[2016-11-06] MEDS: ACETAMINOPHEN 1000 MG/100 ML VIAL IV SCH ×4 (03:15→19:17)
[2016-11-06] MEDS: MORPHINE SULFATE 4 MG/ML INJ IV PUSH PRN ×6 (03:15→22:55)
[2016-11-06] MEDS: metroNIDAZOLE 500 MG INJ 100 ML IV SCH ×3 (03:19→17:31)
[2016-11-06] MEDS: SODIUM CHLOR 0.9% 1000 ML INJ 1,000 ML IV SCH ×2 (04:28→18:46)
[2016-11-06] MEDS: PANTOPRAZOLE SODIUM 40 MG VIAL IV PUSH SCH (09:00)
[2016-11-06] MEDS: SODIUM CHLORIDE 0.9% FLUSH 10 ML FLUSH IV FLUSH SCH ×2 (09:27→21:00)
[2016-11-06 09:51] LABS: BASOPHIL % 0.5 % (0.0-2.0); EOSINOPHIL % 0.2 % (0.0-4.0); HEMATOCRIT 32.7 % (35.0-46.0); HEMO FLAGS DIFF FINAL; LYMPH % 7.2 % (9.0-44.0); LYMPHOCYTE # 0.7 TH/MM3 (1.0-4.8); MEAN CELL VOLUME 83.6 FL (80.0-100.0); MEAN CORPUSCULAR HEMOGLOBIN 27.9 PG (27.0-34.0); MEAN CORPUSCULAR HGB CONC 33.3 % (32.0-36.0); MONO % 5.8 % (0.0-8.0); NEUT % 86.3 % (16.0-70.0); PLATELET COUNT 208 TH/MM3 (150-450); RED BLOOD COUNT 3.91 MIL/MM3 (4.00-5.30); WHITE BLOOD COUNT 9.2 TH/MM3 (4.0-11.0)
[2016-11-06 10:11] LABS: ALT (GPT) 15 U/L (10-53); ANION GAP 8 MEQ/L (5-15); AST (GOT) 12 U/L (15-37); BICARBONATE 23.5 MEQ/L (21.0-32.0); BLOOD UREA NITROGEN 11 MG/DL (7-18); CHLORIDE 111 MEQ/L (98-107); GLOMERULAR FILTRATION RATE 89 ML/MIN (>89); POTASSIUM 3.9 MEQ/L (3.5-5.1); SODIUM (NA) 142 MEQ/L (136-145)
[2016-11-06 10:12] LABS: ALKALINE PHOSPHATASE 77 U/L (45-117); TOTAL BILIRUBIN ADULT 0.7 MG/DL (0.2-1.0)
--- NOTE | 2016-11-06 12:29 | HHI.PR ---
Subjective Remarks No acute events overnight. Last febrile at 17:41 on 11/05 with a MAXIMUM TEMPERATURE of 100.9. She denies fever/chills. States she is feeling better even once the morphine wears off her abdominal pain is less than it was yesterday. No bowel movements 4 days. Objective Vitals Vital Signs Date Time Temp Pulse Resp B/P Pulse Ox O2 Delivery O2 Flow Rate FiO2 11/06/16 09:35 Room Air 11/06/16 08:00 97.9 86 20 108/69 98 11/06/16 04:00 99.0 82 20 90/55 97 11/06/16 04:00 Room Air 11/06/16 00:00 98.1 86 20 104/59 95 11/06/16 00:00 Room Air 11/05/16 20:00 97.5 105 20 128/73 96 11/05/16 20:00 Room Air 11/05/16 17:41 100.9 113 18 138/77 95 11/05/16 17:06 92 18 134/68 97 21 11/05/16 15:33 100.8 11/05/16 14:50 112 16 140/79 97 11/05/16 13:00 116 16 141/67 100 11/05/16 12:36 120 16 136/62 98 I/O 11/05/16 11/05/16 11/05/16 11/06/16 11/06/16 11/06/16 07:00 15:00 23:00 07:00 15:00 23:00 Intake Total 2200 ml 357 ml 1128 ml Output Total 200 ml Balance 2200 ml 357 ml 928 ml Intake Oral 0 ml 0 ml IV Total 2200 ml 357 ml 1128 ml Output Urine Total 200 ml # Voids 1 # Bowel Movements 0 0 Result Diagram: 11/06/1681111/06/16 0812 Objective Remarks Gen.: No acute distress Head: Normocephalic. Atraumatic. EENT: Pupils equal round and reactive to light. Nose without drainage. Airway intact. Throat without injection. Cardiovascular: Regular rate and rhythm. No murmurs, rubs or gallops. Respiratory: Lungs clear to auscultation bilaterally. No wheezes or rhonchi. Abdomen: Soft, tender to palpation in left lower quadrant, nondistended. No peritoneal signs. Musculoskeletal: No gross deformities. No edema. Skin: No obvious rashes or erythema. Neuro: Sensory and motor grossly intact. Cranial nerves II through XII grossly intact. Psych: Appropriate mood and affect A/P Problem List: (1) Diverticulitis of intestine with abscess without bleeding ICD Code: K57.80 Status: Acute Assessment and Plan 51-year-old female with Diverticulitis of intestine with abscess without bleeding CT abdomen noted finding of new small abscess in the left mid lateral pelvis with air-fluid level and acute diverticulitis General surgery consulted and recommended interventional radiology, however per interventional radiology abscess too small at this time for percutaneous drainage. Status post Levaquin and Flagyl, continue with antibiotics Parenteral pain management, NPO with sips. Advance diet per general surgery. Hypertension Resume outpatient medications Vasotec when necessary Tachycardia - resolved Likely secondary to above secondary process Continue with management as in above DVT prophylaxis: Bilateral SCDs GI prophylaxis: PPI Discharge Planning Pending clinical improvement and transition to PO antibiotics/nutrition Mi Reese MD R3 Nov 06, 2016 12:29
--- NOTE | 2016-11-06 12:56 | HHI.PR ---
Subjective Subjective Notes feels much better, wants something to drink. no N/V Objective Vitals/I&O Vital Signs Date Time Temp Pulse Resp B/P Pulse Ox O2 Delivery O2 Flow Rate FiO2 11/06/16 09:35 Room Air 11/06/16 08:00 97.9 86 20 108/69 98 11/05/16 17:06 21 Labs Laboratory Tests Test 11/06/16 08:12 White Blood Count 9.2 Red Blood Count 3.91 Hemoglobin 10.9 Hematocrit 32.7 Mean Corpuscular Volume 83.6 Mean Corpuscular Hemoglobin 27.9 Mean Corpuscular Hemoglobin 33.3 Concent Red Cell Distribution Width 14.0 Platelet Count 208 Mean Platelet Volume 7.8 Neutrophils (%) (Auto) 86.3 Lymphocytes (%) (Auto) 7.2 Monocytes (%) (Auto) 5.8 Eosinophils (%) (Auto) 0.2 Basophils (%) (Auto) 0.5 Neutrophils # (Auto) 8.0 Lymphocytes # (Auto) 0.7 Monocytes # (Auto) 0.5 Eosinophils # (Auto) 0.0 Basophils # (Auto) 0.0 CBC Comment DIFF FINAL Differential Comment Sodium Level 142 Potassium Level 3.9 Chloride Level 111 Carbon Dioxide Level 23.5 Anion Gap 8 Blood Urea Nitrogen 11 Creatinine 0.69 Estimat Glomerular Filtration 89 Rate Random Glucose 90 Calcium Level 8.4 Total Bilirubin 0.7 Aspartate Amino Transf 12 (AST/SGOT) Alanine Aminotransferase 15 (ALT/SGPT) Alkaline Phosphatase 77 Total Protein 5.8 Albumin 2.3 Abdomen: Non-distended, Non-tender, BS normal A/P Assessment and Plan diverticulitis clinically improved with IV abx liquid diet today Curtis Yates MD Nov 06, 2016 12:56
[2016-11-06] MEDS: LEVOFLOXACIN 500 MG PREMIX INJ 100 ML IV SCH (13:50)
[2016-11-06] MEDS: ONDANSETRON HCL 4 MG/2 ML VIAL IVP PRN (17:25)
[2016-11-06] MEDS: TEMAZEPAM 15 MG CAP PO PRN (22:55)
[2016-11-07] VITALS (7 sets, daily range): BP systolic 97–154; BP diastolic 51–75; PULSE 82–105; RESP 18–20; TEMP 97.3–99.7; O2SAT 93–98
[2016-11-07] MEDS: ACETAMINOPHEN 1000 MG/100 ML VIAL IV SCH ×5 (02:05→20:22)
[2016-11-07] MEDS: MORPHINE SULFATE 4 MG/ML INJ IV PUSH PRN ×2 (02:05→05:56)
[2016-11-07] MEDS: ONDANSETRON HCL 4 MG/2 ML VIAL IVP PRN ×3 (02:05→20:23)
[2016-11-07] MEDS: metroNIDAZOLE 500 MG INJ 100 ML IV SCH ×4 (04:11→16:31)
[2016-11-07] MEDS: SODIUM CHLORIDE 0.9% FLUSH 10 ML FLUSH IV FLUSH SCH ×2 (08:29→20:24)
[2016-11-07] MEDS: PANTOPRAZOLE SODIUM 40 MG VIAL IV PUSH SCH (08:30)
[2016-11-07] MEDS: SODIUM CHLOR 0.9% 1000 ML INJ 1,000 ML IV SCH ×2 (09:04→23:42)
[2016-11-07 09:55] LABS: AUTOMATED NEUTROPHIL # 8.1 TH/MM3 (1.8-7.7); BASOPHIL % 0.2 % (0.0-2.0); EOSINOPHIL # 0.1 TH/MM3 (0-0.4); EOSINOPHIL % 1.4 % (0.0-4.0); HEMO FLAGS DIFF FINAL; LYMPHOCYTE # 0.7 TH/MM3 (1.0-4.8); MEAN CELL VOLUME 83.3 FL (80.0-100.0); MEAN CORPUSCULAR HEMOGLOBIN 28.7 PG (27.0-34.0); MEAN CORPUSCULAR HGB CONC 34.4 % (32.0-36.0); MONO % 5.6 % (0.0-8.0); NEUT % 85.8 % (16.0-70.0); PLATELET COUNT 203 TH/MM3 (150-450); RED BLOOD COUNT 3.72 MIL/MM3 (4.00-5.30); RED CELL DISTRIBUTION WIDTH 14.3 % (11.6-17.2); WHITE BLOOD COUNT 9.4 TH/MM3 (4.0-11.0)
[2016-11-07 10:19] LABS: BICARBONATE 23.8 MEQ/L (21.0-32.0); POTASSIUM 3.5 MEQ/L (3.5-5.1)
[2016-11-07] MEDS: LEVOFLOXACIN 500 MG PREMIX INJ 100 ML IV SCH ×3 (12:00→16:11)
[2016-11-07] MEDS ORDERED: ACETAMINOPHEN/HYDROcodone 325 MG/5 MG TAB PO PRN (14:45)
--- NOTE | 2016-11-07 15:02 | HHI.PR ---
Subjective Remarks Follow for diverticulitis with abscess Patient's abdominal pain is improving. She continues to have abdominal pain. Patient is on IV morphine every 3 hours. Patient denies any nausea or vomiting. She is tolerating her clear liquid diet. Objective Vitals Vital Signs Date Time Temp Pulse Resp B/P Pulse Ox O2 Delivery O2 Flow Rate FiO2 11/07/16 12:47 94 11/07/16 12:02 99.1 86 18 114/56 98 11/07/16 09:00 96 Room Air 11/07/16 08:01 97.3 87 18 111/55 98 11/07/16 04:00 97.9 82 18 97/51 94 11/07/16 04:00 Room Air 11/07/16 00:00 Room Air 11/07/16 00:00 98.7 98 18 132/68 93 11/06/16 21:24 97 21 11/06/16 20:00 99.7 104 18 125/62 11/06/16 20:00 Room Air 11/06/16 16:00 100.0 123 20 147/74 96 I/O 11/06/16 11/06/16 11/06/16 11/07/16 11/07/16 11/07/16 07:00 15:00 23:00 07:00 15:00 23:00 Intake Total 1128 ml 20 ml 1465 ml 655 ml Output Total 200 ml 300 ml Balance 928 ml -280 ml 1465 ml 655 ml Intake Oral 0 ml 20 ml 480 ml 0 ml IV Total 1128 ml 985 ml 655 ml Output Urine Total 200 ml 300 ml # Voids 2 6 # Bowel Movements 0 0 1 Result Diagram: 11/07/1637 11/07/1637 Objective Remarks GENERAL: In no acute distress CARDIOVASCULAR: Regular rate and rhythm without murmurs, gallops, or rubs. RESPIRATORY: Breath sounds equal bilaterally. No accessory muscle use. GASTROINTESTINAL: Abdomen soft, nondistended. Positive tenderness palpation of left lower quadrant. Negative for any peritoneal signs. MUSCULOSKELETAL: No cyanosis, or edema. BACK: Nontender without obvious deformity. No CVA tenderness. Medications and IVs Current Medications Pantoprazole Sodium 40 mg 40 mg ONCE ONCE IVP Last administered on 11/05/16t 09:14; Start 11/05/16 at 08:45; Stop 11/05/16 at 08:46; Status DC Sodium Chloride (NS 1000 ml Inj) 1,000 ml @ 1,000 mls/hr Q1H IV Last administered on 11/05/16 09:23; Start 11/05/16 at 08:41; Stop 11/05/16 at 09:40 ; Status DC Sodium Chloride (NS Flush) 2 ml UNSCH PRN IV FLUSH FLUSH AFTER USING IV ACCESS Last administered on 11/05/16 09:23; Start 11/05/16 at 08:45; Stop 11/05/16 at 14:36; Status DC Famotidine (Pepcid Inj) 20 mg ONCE ONCE IV PUSH Last administered on 09:24; Start 11/05/16 at 08:45; Stop 11/05/16 at 08:46; Status DC Dicyclomine HCl (Bentyl Inj) 20 mg ONCE ONCE IM Last administered on 09:15; Start 11/05/16 at 08:45; Stop 11/05/16 at 08:46; Status DC Ketorolac Tromethamine (Toradol Inj) 30 mg ONCE ONCE IVP Last administered on 11/05/16 09:14; Start 11/05/16 at 08:45; Stop 11/05/16 at 08:46; Status DC Hydromorphone HCl (Dilaudid Pf Inj) 1 mg ONCE ONCE IV PUSH Last administered on 11/05/16 09:14; Start 11/05/16 at 08:45; Stop 11/05/16 at 08:46; Status DC Iohexol 96 ml 96 ml STK-MED ONCE IV Last administered on 11/05/16 10:24; Start 11/05/16 at 10:24; Stop 11/05/16 at 10:25; Status DC Metronidazole 100 ml @ 100 mls/hr ONCE ONCE IV Last administered on 12:59; Start 11/05/16 at 11:00; Stop 11/05/16 at 11:59; Status DC Sodium Chloride 1,000 ml @ 1,000 mls/hr Q1H IV Last administered on 11/05/16 11:50; Start 11/05/16 at 10:58; Stop 11/05/16 at 11:57; Status DC Levofloxacin/ Dextrose (Levaquin 500 Mg Premix Inj) 100 ml @ 100 mls/hr ONCE ONCE IV Last administered on 11/05/16 11:51; Start 11/05/16 at 11:00; Stop 03/12 at 11:59; Status DC Hydromorphone HCl (Dilaudid Pf Inj) 1 mg ONCE ONCE IV PUSH Last administered on 11/05/16 12:59; Start 11/05/16 at 12:45; Stop 11/05/16 at 12:46; Status DC Ondansetron HCl (Zofran Inj) 4 mg ONCE ONCE IV PUSH Last administered on 13:05; Start 11/05/16 at 13:15; Stop 11/05/16 at 13:16; Status DC Ondansetron HCl 4 mg 4 mg Q6H PRN IV NAUSEA OR VOMITING; Start 11/05/16 at 14: 00; Stop 11/05/16 at 19:11; Status DC Sodium Chloride (NS 1000 ml Inj) 1,000 ml @ 70 mls/hr [id number] IV Last administered on 11/06/16 18:46; Start 11/05/16 at 14:10 Sodium Chloride (NS Flush) 2 ml UNSCH PRN IV FLUSH FLUSH AFTER USING IV ACCESS ; Start 11/05/16 at 14:15 Sodium Chloride (NS Flush) 2 ml BID IV FLUSH Last administered on 11/07/16 08: 29; Start 11/05/16 at 21:00 Acetaminophen (Tylenol) 650 mg Q4H PRN PO TEMP > 100.4 Last administered on 15:38; Start 11/05/16 at 14:15; Stop 11/05/16 at 19:03; Status DC Ondansetron HCl (Zofran Inj) 4 mg Q6H PRN IVP NAUSEA OR VOMITING Last administered on 11/07/16 08:00; Start 11/05/16 at 14:15 Temazepam (Restoril) 15 mg HS PRN PO INSOMNIA Last administered on 11/06/16 22 :55; Start 11/05/16 at 14:15 Acetaminophen (Tylenol) 650 mg Q6H PRN PO PAIN SCALE 1 TO 2; Start 11/05/16 at 14:15; Stop 11/05/16 at 19:03; Status DC Ketorolac Tromethamine (Toradol Inj) 15 mg Q6H PRN IVP Pain 3-5; if unable to take PO; Start 11/05/16 at 14:15; Stop 11/10/16 at 14:14 Ketorolac Tromethamine (Toradol Inj) 30 mg Q6H PRN IVP Pain 6-10;if unable to take PO; Start 11/05/16 at 14:15; Stop 11/10/16 at 14:14 Naloxone HCl 0.4 mg 0.4 mg UNSCH PRN IV SEE LABEL COMMENTS; Start 11/05/16 at 14:15 Metronidazole 100 ml @ 100 mls/hr Q8H IV Last administered on 11/07/16 13:44 ; Start 11/05/16 at 19:00 Levofloxacin/ Dextrose (Levaquin 500 Mg Premix Inj) 100 ml @ 100 mls/hr Q24H IV Last administered on 11/07/16 13:44; Start 11/06/16 at 12:00 Promethazine HCl (Phenergan Inj) 25 mg ONCE ONCE IM Last administered on 14:42; Start 11/05/16 at 14:30; Stop 11/05/16 at 14:36; Status DC Pantoprazole Sodium (Protonix Inj) 40 mg Q24H IV PUSH Last administered on 11/07 08:30; Start 11/06/16 at 09:00 Metoclopramide HCl (Reglan Inj) 5 mg Q6H PRN IV NAUSEA Last administered on 03:15; Start 11/05/16 at 15:15 Acetaminophen (Ofirmev Inj) 1,000 mg Q6H IV Last administered on 11/07/16 13: 46; Start 11/05/16 at 20:00 Morphine Sulfate 4 mg 4 mg Q3H PRN IV PUSH PAIN 4-10 Last administered on 05:56; Start 11/05/16 at 19:15 Sodium Chloride (NS 500 ml Inj) 500 ml @ 500 mls/hr BOLUS ONCE IV Last administered on 11/05/16 19:15; Start 11/05/16 at 19:15; Stop 11/05/16 at 20:14 ; Status DC Lactobacillus Acidophilus (Lactinex) 1 tab TID PO ; Start 11/07/16 at 18:00 Acetaminophen/ Hydrocodone Bitart ([place] 5-325 Mg) 1 tab Q4H PRN PO pain 3-7; Start 11/07/16 at 14:45 Acetaminophen/ Hydrocodone Bitart ([place] 5-325 Mg) 2 tab Q4H PRN PO pain 8-10 ; Start 11/07/16 at 14:45 A/P Problem List: (1) Diverticulitis of intestine with abscess without bleeding ICD Code: K57.80 Status: Acute Assessment and Plan 51-year-old female with Diverticulitis of intestine with abscess without bleeding CT abdomen noted finding of new small abscess in the left mid lateral pelvis with air-fluid level and acute diverticulitis General surgery consulted and recommended interventional radiology, however per interventional radiology abscess too small at this time for percutaneous drainage. Status post Levaquin and Flagyl, continue with antibiotics Parenteral pain management. Patient is tolerating clear liquid diet. Advance diet per general surgery. Will give norco for pain and try to decrease use of morphine. Hypertension And she went home medication. Vasotec when necessary Tachycardia - resolved Likely secondary to above secondary process Continue with management as in above DVT prophylaxis: Bilateral SCDs GI prophylaxis: PPI Pushpa Mao MD Nov 07, 2016 15:02
[2016-11-07] MEDS: ACETAMINOPHEN/HYDROcodone 325 MG/5 MG TAB PO PRN ×3 (15:10→19:04)
--- NOTE | 2016-11-07 16:34 | HHI.PR ---
Subjective Subjective Notes Resting in bed Family at bedside Objective Vitals/I&O Vital Signs Date Time Temp Pulse Resp B/P Pulse Ox O2 Delivery O2 Flow Rate FiO2 11/07/16 12:47 94 11/07/16 12:02 99.1 86 18 114/56 11/07/16 09:00 Room Air 11/06/16 21:24 21 Labs Laboratory Tests Test 11/07/16 08:37 White Blood Count 9.4 Red Blood Count 3.72 Hemoglobin 10.7 Hematocrit 31.0 Mean Corpuscular Volume 83.3 Mean Corpuscular Hemoglobin 28.7 Mean Corpuscular Hemoglobin 34.4 Concent Red Cell Distribution Width 14.3 Platelet Count 203 Mean Platelet Volume 8.0 Neutrophils (%) (Auto) 85.8 Lymphocytes (%) (Auto) 7.0 Monocytes (%) (Auto) 5.6 Eosinophils (%) (Auto) 1.4 Basophils (%) (Auto) 0.2 Neutrophils # (Auto) 8.1 Lymphocytes # (Auto) 0.7 Monocytes # (Auto) 0.5 Eosinophils # (Auto) 0.1 Basophils # (Auto) 0.0 CBC Comment DIFF FINAL Differential Comment Sodium Level 140 Potassium Level 3.5 Chloride Level 109 Carbon Dioxide Level 23.8 Anion Gap 7 Blood Urea Nitrogen 11 Creatinine 0.57 Estimat Glomerular Filtration 111 Rate Random Glucose 85 Calcium Level 8.0 Cardiovascular: Regular Lungs: Clear Abdomen: Other (non distended; LLQ tenderness with palpation ) Extremities: No edema A/P Assessment and Plan 51 year old female with diverticulitis -Continue IV antibiotics -Pain control -Continue clear liquids -WBC continues to trend down; Afebrile -Labs in AM Attending Statement wharf tender LLQ, but less so. Had BM, passed flatus. Overall improved. Fulls, one can ensure vanilla a day. The exam, history, and the medical decision-making described in the above note were completed with the assistance of the mid-level provider. I reviewed and agree with the findings presented. I attest that I had a [id number] encounter with the patient on the same day, and personally performed and documented my assessment and findings in the medical record. Sasha Astorga Nov 07, 2016 16:34 Allen Atkinson MD Nov 07, 2016 16:43
[2016-11-07] MEDS: LACTOBACILLUS ACIDOPHILUS TAB PO SCH (19:04)
[2016-11-07] MEDS: TEMAZEPAM 15 MG CAP PO PRN (20:23)
[2016-11-08] VITALS (7 sets, daily range): BP systolic 110–152; BP diastolic 56–86; PULSE 84–97; RESP 16–20; TEMP 97.3–98.4; O2SAT 94–97
[2016-11-08] MEDS: ACETAMINOPHEN 1000 MG/100 ML VIAL IV SCH ×4 (02:37→20:59)
[2016-11-08] MEDS: metroNIDAZOLE 500 MG INJ 100 ML IV SCH ×3 (02:41→18:59)
[2016-11-08] MEDS: ONDANSETRON HCL 4 MG/2 ML VIAL IVP PRN ×2 (02:42→19:37)
[2016-11-08] MEDS: MORPHINE SULFATE 4 MG/ML INJ IV PUSH PRN ×3 (05:55→20:59)
[2016-11-08 08:20] LABS: HEMATOCRIT 35.9 % (35.0-46.0); MEAN CELL VOLUME 83.8 FL (80.0-100.0); MEAN CORPUSCULAR HEMOGLOBIN 27.3 PG (27.0-34.0); MEAN CORPUSCULAR HGB CONC 32.6 % (32.0-36.0); PLATELET COUNT 262 TH/MM3 (150-450); RED BLOOD COUNT 4.29 MIL/MM3 (4.00-5.30); RED CELL DISTRIBUTION WIDTH 14.4 % (11.6-17.2); REVIEW FLAG FINAL
[2016-11-08 08:42] LABS: BICARBONATE 20.4 MEQ/L (21.0-32.0); POTASSIUM 3.3 MEQ/L (3.5-5.1)
[2016-11-08] MEDS: SODIUM CHLORIDE 0.9% FLUSH 10 ML FLUSH IV FLUSH SCH ×2 (09:00→21:00)
[2016-11-08] MEDS: LACTOBACILLUS ACIDOPHILUS TAB PO SCH ×3 (09:18→18:00)
[2016-11-08] MEDS: PANTOPRAZOLE SODIUM 40 MG VIAL IV PUSH SCH (09:18)
[2016-11-08] MEDS ORDERED: POTASSIUM CHLORIDE 10 MEQ CONTROLLED RELEASE TAB PO ONE (12:00)
--- NOTE | 2016-11-08 12:17 | HHI.PR ---
Subjective Remarks Follow up diverticulitis collocated by s Patient states she feels better but she continues to have left lower quadrant pain. She feels like it's due to gas. Denies any nausea or vomiting but stated that she does not have an appetite. She stated that she ate yogurt and was really good. Patient also stated that she try to [place] but she felt very nauseous so she couldn't take it anymore. She stated that she only require 1 dose of morphine at night. Her is at the bedside. Objective Vitals Vital Signs Date Time Temp Pulse Resp B/P Pulse Ox O2 Delivery O2 Flow Rate FiO2 11/08/16 12:00 98.4 96 20 152/86 96 11/08/16 11:22 94 11/08/16 08:00 98.4 97 20 137/76 96 11/08/16 04:00 98.3 90 16 114/56 95 11/08/16 00:00 98.1 89 20 110/59 97 11/07/16 20:00 Room Air 11/07/16 20:00 99.7 96 18 127/60 98 11/07/16 16:01 98.3 105 20 154/75 97 11/07/16 12:47 94 I/O 11/07/16 11/07/16 11/07/16 11/08/16 11/08/16 11/08/16 06:59 14:59 22:59 06:59 14:59 22:59 Intake Total 655 ml 720 ml 480 ml 380 ml Output Total 600 ml Balance 655 ml 720 ml -120 ml 380 ml Intake Oral 0 ml 720 ml 480 ml 380 ml IV Total 655 ml Output Urine Total 600 ml # Voids 6 3 3 # Bowel Movements 1 1 1 2 Result Diagram: 11/08/16 0653 11/08/16 0653 Objective Remarks GENERAL: In no acute distress CARDIOVASCULAR: Regular rate and rhythm without murmurs, gallops, or rubs. RESPIRATORY: Breath sounds equal bilaterally. No accessory muscle use. GASTROINTESTINAL: Abdomen soft, nondistended. Positive tenderness palpation of left lower quadrant with deep pressure. Negative for any peritoneal signs. MUSCULOSKELETAL: No cyanosis, or edema. BACK: Nontender without obvious deformity. No CVA tenderness. Medications and IVs Current Medications Pantoprazole Sodium 40 mg 40 mg ONCE ONCE IVP Last administered on 11/05/16 09:14; Start 11/05/16 at 08:45; Stop 11/05/16 at 08:46; Status DC Sodium Chloride (NS 1000 ml Inj) 1,000 ml @ 1,000 mls/hr Q1H IV Last administered on 11/05/16 09:23; Start 11/05/16 at 08:41; Stop 11/05/16 at 09:40 ; Status DC Sodium Chloride (NS Flush) 2 ml UNSCH PRN IV FLUSH FLUSH AFTER USING IV ACCESS Last administered on 11/05/16 09:23; Start 11/05/16 at 08:45; Stop 11/05/16 at 14:36; Status DC Famotidine (Pepcid Inj) 20 mg ONCE ONCE IV PUSH Last administered on 09:24; Start 11/05/16 at 08:45; Stop 11/05/16 at 08:46; Status DC Dicyclomine HCl (Bentyl Inj) 20 mg ONCE ONCE IM Last administered on 09:15; Start 11/05/16 at 08:45; Stop 11/05/16 at 08:46; Status DC Ketorolac Tromethamine (Toradol Inj) 30 mg ONCE ONCE IVP Last administered on 11/05/16 09:14; Start 11/05/16 at 08:45; Stop 11/05/16 at 08:46; Status DC Hydromorphone HCl (Dilaudid Pf Inj) 1 mg ONCE ONCE IV PUSH Last administered on 11/05/16 09:14; Start 11/05/16 at 08:45; Stop 11/05/16 at 08:46; Status DC Iohexol 96 ml 96 ml STK-MED ONCE IV Last administered on 11/05/16 10:24; Start 11/05/16 at 10:24; Stop 11/05/16 at 10:25; Status DC Metronidazole 100 ml @ 100 mls/hr ONCE ONCE IV Last administered on 12:59; Start 11/05/16 at 11:00; Stop 11/05/16 at 11:59; Status DC Sodium Chloride 1,000 ml @ 1,000 mls/hr Q1H IV Last administered on 11/05/16 11:50; Start 11/05/16 at 10:58; Stop 11/05/16 at 11:57; Status DC Levofloxacin/ Dextrose (Levaquin 500 Mg Premix Inj) 100 ml @ 100 mls/hr ONCE ONCE IV Last administered on 11/05/16 11:51; Start 11/05/16 at 11:00; Stop 03/12 at 11:59; Status DC Hydromorphone HCl (Dilaudid Pf Inj) 1 mg ONCE ONCE IV PUSH Last administered on 11/05/16 12:59; Start 11/05/16 at 12:45; Stop 11/05/16 at 12:46; Status DC Ondansetron HCl (Zofran Inj) 4 mg ONCE ONCE IV PUSH Last administered on 13:05; Start 11/05/16 at 13:15; Stop 11/05/16 at 13:16; Status DC Ondansetron HCl 4 mg 4 mg Q6H PRN IV NAUSEA OR VOMITING; Start 11/05/16 at 14: 00; Stop 11/05/16 at 19:11; Status DC Sodium Chloride (NS 1000 ml Inj) 1,000 ml @ 70 mls/hr [id number] IV Last administered on 11/07/16 23:42; Start 11/05/16 at 14:10 Sodium Chloride (NS Flush) 2 ml UNSCH PRN IV FLUSH FLUSH AFTER USING IV ACCESS ; Start 11/05/16 at 14:15 Sodium Chloride (NS Flush) 2 ml BID IV FLUSH Last administered on 11/07/16 20: 24; Start 11/05/16 at 21:00 Acetaminophen (Tylenol) 650 mg Q4H PRN PO TEMP > 100.4 Last administered on 15:38; Start 11/05/16 at 14:15; Stop 11/05/16 at 19:03; Status DC Ondansetron HCl (Zofran Inj) 4 mg Q6H PRN IVP NAUSEA OR VOMITING Last administered on 11/08/16 02:42; Start 11/05/16 at 14:15 Temazepam (Restoril) 15 mg HS PRN PO INSOMNIA Last administered on 11/07/16 20 :23; Start 11/05/16 at 14:15 Acetaminophen (Tylenol) 650 mg Q6H PRN PO PAIN SCALE 1 TO 2; Start 11/05/16 at 14:15; Stop 11/05/16 at 19:03; Status DC Ketorolac Tromethamine (Toradol Inj) 15 mg Q6H PRN IVP Pain 3-5; if unable to take PO; Start 11/05/16 at 14:15; Stop 11/10/16 at 14:14 Ketorolac Tromethamine (Toradol Inj) 30 mg Q6H PRN IVP Pain 6-10;if unable to take PO; Start 11/05/16 at 14:15; Stop 11/10/16 at 14:14 Naloxone HCl 0.4 mg 0.4 mg UNSCH PRN IV SEE LABEL COMMENTS; Start 11/05/16 at 14:15 Metronidazole 100 ml @ 100 mls/hr Q8H IV Last administered on 11/08/16 02:41 ; Start 11/05/16 at 19:00 Levofloxacin/ Dextrose (Levaquin 500 Mg Premix Inj) 100 ml @ 100 mls/hr Q24H IV Last administered on 11/07/16 16:11; Start 11/06/16 at 12:00 Promethazine HCl (Phenergan Inj) 25 mg ONCE ONCE IM Last administered on 14:42; Start 11/05/16 at 14:30; Stop 11/05/16 at 14:36; Status DC Pantoprazole Sodium (Protonix Inj) 40 mg Q24H IV PUSH Last administered on 11/08 09:18; Start 11/06/16 at 09:00 Metoclopramide HCl (Reglan Inj) 5 mg Q6H PRN IV NAUSEA Last administered on 03:15; Start 11/05/16 at 15:15 Acetaminophen (Ofirmev Inj) 1,000 mg Q6H IV Last administered on 11/08/16 09: 18; Start 11/05/16 at 20:00 Morphine Sulfate 4 mg 4 mg Q3H PRN IV PUSH PAIN 4-10 Last administered on 09:20; Start 11/05/16 at 19:15 Sodium Chloride (NS 500 ml Inj) 500 ml @ 500 mls/hr BOLUS ONCE IV Last administered on 11/05/16 19:15; Start 11/05/16 at 19:15; Stop 11/05/16 at 20:14 ; Status DC Lactobacillus Acidophilus (Lactinex) 1 tab TID PO Last administered on 09:18; Start 11/07/16 at 18:00 Acetaminophen/ Hydrocodone Bitart ([place] 5-325 Mg) 1 tab Q4H PRN PO pain 3-7 Last administered on 11/07/16 19:04; Start 11/07/16 at 14:45 Acetaminophen/ Hydrocodone Bitart ([place] 5-325 Mg) 2 tab Q4H PRN PO pain 8-10 ; Start 11/07/16 at 14:45 Potassium Chloride (KCl) 30 meq ONCE ONCE PO ; Start 11/08/16 at 12:00; Stop at 12:01; Status UNV Simethicone (Phazyme Chew) 125 mg Q8HR PO ; Start 11/08/16 at 12:30; Status UNV A/P Problem List: (1) Diverticulitis of intestine with abscess without bleeding ICD Code: K57.80 Status: Acute Assessment and Plan 51-year-old female with Diverticulitis of intestine with abscess without bleeding CT abdomen noted finding of new small abscess in the left mid lateral pelvis with air-fluid level and acute diverticulitis General surgery consulted and recommended interventional radiology, however per interventional radiology abscess too small at this time for percutaneous drainage. Status post Levaquin and Flagyl, continue with antibiotics Parenteral pain management. Patient is on full liquid diet. She is tolerating it but has decreased appetite. Advance diet per general surgery. Patient feels like she is unable to take oral pain medication so we'll continue with the IV morphine until she has better oral intake. Will need to continue with IV antibiotics. Hypertension Continue current regimen. Vasotec when necessary Tachycardia - resolved Likely secondary to above secondary process Continue with management as in above DVT prophylaxis: Bilateral SCDs GI prophylaxis: PPI Pushpa Mao MD Nov 08, 2016 12:17
[2016-11-08] MEDS: LEVOFLOXACIN 500 MG PREMIX INJ 100 ML IV SCH (12:29)
[2016-11-08] MEDS: SODIUM CHLOR 0.9% 1000 ML INJ 1,000 ML IV SCH (13:40)
[2016-11-08] MEDS: SIMETHICONE 125 MG CHEWABLE TAB PO SCH ×2 (15:29→20:58)
--- NOTE | 2016-11-08 16:24 | HHI.PR ---
Subjective Subjective Notes Overall feeling better Tolerating full liquids Objective Vitals/I&O Vital Signs Date Time Temp Pulse Resp B/P Pulse Ox O2 Delivery O2 Flow Rate FiO2 11/08/16 12:00 98.4 96 20 152/86 96 11/08/16 09:00 Room Air 11/06/16 21:24 21 Labs Laboratory Tests Test 11/08/16 06:53 White Blood Count 10.0 Red Blood Count 4.29 Hemoglobin 11.7 Hematocrit 35.9 Mean Corpuscular Volume 83.8 Mean Corpuscular Hemoglobin 27.3 Mean Corpuscular Hemoglobin 32.6 Concent Red Cell Distribution Width 14.4 Platelet Count 262 Mean Platelet Volume 7.8 Sodium Level 138 Potassium Level 3.3 Chloride Level 106 Carbon Dioxide Level 20.4 Anion Gap 12 Blood Urea Nitrogen 8 Creatinine 0.51 Estimat Glomerular Filtration 126 Rate Random Glucose 75 Calcium Level 8.0 Cardiovascular: Regular Lungs: Clear Abdomen: Other (LLQ tenderness with palpation ) Extremities: No edema A/P Assessment and Plan 51 year old female with diverticulitis -Continue IV antibiotics -Pain control -Fulls liquids -Labs in AM Attending Statement less tender in LLQ, no rebound. Plan CT A/P tomorrow to follow progress of inflammation and abscess. Sasha Astorga Nov 08, 2016 16:24 Allen Atkinson MD Nov 09, 2016 15:32
[2016-11-09] VITALS (7 sets, daily range): BP systolic 119–148; BP diastolic 56–68; PULSE 70–88; RESP 16–18; TEMP 97.6–99.4; O2SAT 94–98
[2016-11-09] MEDS: MORPHINE SULFATE 4 MG/ML INJ IV PUSH PRN (02:25)
[2016-11-09] MEDS: ACETAMINOPHEN 1000 MG/100 ML VIAL IV SCH ×4 (02:28→21:07)
[2016-11-09] MEDS: metroNIDAZOLE 500 MG INJ 100 ML IV SCH ×3 (02:30→17:31)
[2016-11-09] MEDS: SODIUM CHLOR 0.9% 1000 ML INJ 1,000 ML IV SCH ×2 (04:29→12:02)
[2016-11-09] MEDS: SIMETHICONE 125 MG CHEWABLE TAB PO SCH ×3 (05:56→21:09)
[2016-11-09] MEDS: SODIUM CHLORIDE 0.9% FLUSH 10 ML FLUSH IV FLUSH SCH ×2 (07:40→21:00)
[2016-11-09] MEDS: PANTOPRAZOLE SODIUM 40 MG VIAL IV PUSH SCH (07:46)
[2016-11-09] MEDS: LACTOBACILLUS ACIDOPHILUS TAB PO SCH ×3 (07:47→17:30)
[2016-11-09] MEDS ORDERED: DIATRIZOATE MEGLUM/DIATRIZOATE SOD 9 ML CUP PO ONE (08:30)
[2016-11-09] MEDS ORDERED: IOHEXOL 350 MG/ML 10 ML VIAL (for RAD DIAG) IV ONE (10:36)
--- NOTE | 2016-11-09 10:58 | RADRPT ---
EXAM DATE/TIME: 11/09/2016 10:33 [facility] COMPARISON: CT ABDOMEN & PELVIS W CONTRAST, November 05, 2016, 9:33. INDICATIONS : Complicated diverticulitis, evaluate for possible abscess. IV CONTRAST: 70 cc Omnipaque 350 (iohexol) IV ORAL CONTRAST: No oral contrast ingested. RADIATION DOSE: CTDIvol (mGy) MEDICAL HISTORY : Hypertension. Cardiovascular disease SURGICAL HISTORY : Hysterectomy. ENCOUNTER: Subsequent ACUITY: 1 week PAIN SCALE: 3/10 LOCATION: Left lower quadrant TECHNIQUE: Volumetric scanning of the abdomen and pelvis was performed. Using automated exposure control and ad justment of the mA and/or kV according to patient size, radiation dose was kept as low as reasonably achievable to obtain optimal diagnostic quality images. DICOM format image data is available electro nically for review and comparison. FINDINGS: There are trace bilateral pleural effusions now. Small pericardial effusion is noted Trace ascites is evident The liver, spleen, pancreas, adrenals and kidneys are unremarkable. There are inflammatory changes in the left lower quadrant associated with long segment diverticulitis of the sigmoid colon . Small fluid collection containing air is seen adjacent to the iliac artery and vein. This is in i ntimate association with the sigmoid colon, hidden behind the sigmoid colon without adequate percutan eous access without traversing:. Minimal ascites is present in the pelvis. There is no free air. CONCLUSION: Continued extensive inflammatory changes sigmoid colon associated with long segment diverticulitis. There is the fluid collection containing air deep in the pelvis with tenuous percutaneous access. Interval development of small bilateral pleural effusions and trace ascites. Kennedy Benson MD FACR on November 09, 2016 at 10:46 Board Certified Radiologist. This report was verified electronically.
--- NOTE | 2016-11-09 13:49 | HHI.PR ---
Subjective Remarks Follow-up for diverticulitis collocated by an abscess Patient's continues to have decreased by mouth intake but she is tolerating her full liquid diet. She stated that she had one yogurt this morning and did well with that. She also stated that her pain has improved especially after the simethicone given. She stated that she had the oral contrast today but she was not able to drink a lot of that. Otherwise no other complaints. Objective Vitals Vital Signs Date Time Temp Pulse Resp B/P Pulse Ox O2 Delivery O2 Flow Rate FiO2 11/09/16 12:00 97.7 78 18 127/62 97 11/09/16 08:38 97 11/09/16 08:00 99.0 88 18 132/63 95 11/09/16 04:00 97.6 84 16 119/56 94 11/09/16 00:00 98.3 83 18 120/60 97 11/08/16 20:00 98.3 84 18 146/72 97 11/08/16 20:00 Room Air 11/08/16 16:00 97.3 84 20 122/58 97 11/08/16 15:30 16 11/08/16 15:30 16 I/O 11/08/16 11/08/16 11/08/16 11/09/16 11/09/16 11/09/16 07:00 15:00 23:00 07:00 15:00 23:00 Intake Total 380 ml 240 ml Output Total 800 ml Balance 380 ml -560 ml Intake Oral 380 ml 240 ml Output Urine Total 800 ml # Voids 3 2 # Bowel Movements 2 2 Result Diagram: 11/08/16 0653 11/08/16 0653 Imaging Last Impressions Abdomen/Pelvis CT 11/09/16 0600 Signed Impressions: Service Date/Time: Wednesday, November 09, 2016 10:33 - CONCLUSION: Continued extensive inflammatory changes sigmoid colon associated with long segment diverticulitis. There is the fluid collection containing air deep in the pelvis with tenuous percutaneous access. Interval development of small bilateral pleural effusions and trace ascites. Kennedy Benson MD FACR Objective Remarks GENERAL: In no acute distress CARDIOVASCULAR: Regular rate and rhythm without murmurs, gallops, or rubs. RESPIRATORY: Breath sounds equal bilaterally. No accessory muscle use. GASTROINTESTINAL: Abdomen soft, nondistended. Positive tenderness palpation of left lower quadrant with deep pressure. Negative for any peritoneal signs. MUSCULOSKELETAL: No cyanosis, or edema. BACK: Nontender without obvious deformity. No CVA tenderness. Medications and IVs Current Medications Pantoprazole Sodium 40 mg 40 mg ONCE ONCE IVP Last administered on 11/05/16 09:14; Start 11/05/16 at 08:45; Stop 11/05/16 at 08:46; Status DC Sodium Chloride (NS 1000 ml Inj) 1,000 ml @ 1,000 mls/hr Q1H IV Last administered on 11/05/16 09:23; Start 11/05/16 at 08:41; Stop 11/05/16 at 09:40 ; Status DC Sodium Chloride (NS Flush) 2 ml UNSCH PRN IV FLUSH FLUSH AFTER USING IV ACCESS Last administered on 11/05/16 09:23; Start 11/05/16 at 08:45; Stop 11/05/16 at 14:36; Status DC Famotidine (Pepcid Inj) 20 mg ONCE ONCE IV PUSH Last administered on 09:24; Start 11/05/16 at 08:45; Stop 11/05/16 at 08:46; Status DC Dicyclomine HCl (Bentyl Inj) 20 mg ONCE ONCE IM Last administered on 09:15; Start 11/05/16 at 08:45; Stop 11/05/16 at 08:46; Status DC Ketorolac Tromethamine (Toradol Inj) 30 mg ONCE ONCE IVP Last administered on 11/05/16 09:14; Start 11/05/16 at 08:45; Stop 11/05/16 at 08:46; Status DC Hydromorphone HCl (Dilaudid Pf Inj) 1 mg ONCE ONCE IV PUSH Last administered on 11/05/16 09:14; Start 11/05/16 at 08:45; Stop 11/05/16 at 08:46; Status DC Iohexol 96 ml 96 ml STK-MED ONCE IV Last administered on 11/05/16 10:24; Start 11/05/16 at 10:24; Stop 11/05/16 at 10:25; Status DC Metronidazole 100 ml @ 100 mls/hr ONCE ONCE IV Last administered on 12:59; Start 11/05/16 at 11:00; Stop 11/05/16 at 11:59; Status DC Sodium Chloride 1,000 ml @ 1,000 mls/hr Q1H IV Last administered on 11/05/16 11:50; Start 11/05/16 at 10:58; Stop 11/05/16 at 11:57; Status DC Levofloxacin/ Dextrose (Levaquin 500 Mg Premix Inj) 100 ml @ 100 mls/hr ONCE ONCE IV Last administered on 11/05/16 11:51; Start 11/05/16 at 11:00; Stop 03/12 at 11:59; Status DC Hydromorphone HCl (Dilaudid Pf Inj) 1 mg ONCE ONCE IV PUSH Last administered on 11/05/16 12:59; Start 11/05/16 at 12:45; Stop 11/05/16 at 12:46; Status DC Ondansetron HCl (Zofran Inj) 4 mg ONCE ONCE IV PUSH Last administered on 13:05; Start 11/05/16 at 13:15; Stop 11/05/16 at 13:16; Status DC Ondansetron HCl 4 mg 4 mg Q6H PRN IV NAUSEA OR VOMITING; Start 11/05/16 at 14: 00; Stop 11/05/16 at 19:11; Status DC Sodium Chloride (NS 1000 ml Inj) 1,000 ml @ 70 mls/hr [id number] IV Last administered on 11/09/16 12:02; Start 11/05/16 at 14:10 Sodium Chloride (NS Flush) 2 ml UNSCH PRN IV FLUSH FLUSH AFTER USING IV ACCESS Last administered on 11/09/16 02:26; Start 11/05/16 at 14:15 Sodium Chloride (NS Flush) 2 ml BID IV FLUSH Last administered on 11/09/16 07: 40; Start 11/05/16 at 21:00 Acetaminophen (Tylenol) 650 mg Q4H PRN PO TEMP > 100.4 Last administered on 15:38; Start 11/05/16 at 14:15; Stop 11/05/16 at 19:03; Status DC Ondansetron HCl (Zofran Inj) 4 mg Q6H PRN IVP NAUSEA OR VOMITING Last administered on 11/08/16 19:37; Start 11/05/16 at 14:15 Temazepam (Restoril) 15 mg HS PRN PO INSOMNIA Last administered on 11/07/16 20 :23; Start 11/05/16 at 14:15 Acetaminophen (Tylenol) 650 mg Q6H PRN PO PAIN SCALE 1 TO 2; Start 11/05/16 at 14:15; Stop 11/05/16 at 19:03; Status DC Ketorolac Tromethamine (Toradol Inj) 15 mg Q6H PRN IVP Pain 3-5; if unable to take PO; Start 11/05/16 at 14:15; Stop 11/10/16 at 14:14 Ketorolac Tromethamine (Toradol Inj) 30 mg Q6H PRN IVP Pain 6-10;if unable to take PO; Start 11/05/16 at 14:15; Stop 11/10/16 at 14:14 Naloxone HCl 0.4 mg 0.4 mg UNSCH PRN IV SEE LABEL COMMENTS; Start 11/05/16 at 14:15 Metronidazole 100 ml @ 100 mls/hr Q8H IV Last administered on 11/09/16 12:02 ; Start 11/05/16 at 19:00 Levofloxacin/ Dextrose (Levaquin 500 Mg Premix Inj) 100 ml @ 100 mls/hr Q24H IV Last administered on 11/08/16 12:29; Start 11/06/16 at 12:00 Promethazine HCl (Phenergan Inj) 25 mg ONCE ONCE IM Last administered on 14:42; Start 11/05/16 at 14:30; Stop 11/05/16 at 14:36; Status DC Pantoprazole Sodium (Protonix Inj) 40 mg Q24H IV PUSH Last administered on 11/09 07:46; Start 11/06/16 at 09:00 Metoclopramide HCl (Reglan Inj) 5 mg Q6H PRN IV NAUSEA Last administered on 03:15; Start 11/05/16 at 15:15; Stop 11/08/16 at 19:11; Status DC Acetaminophen (Ofirmev Inj) 1,000 mg Q6H IV Last administered on 11/09/16 07: 47; Start 11/05/16 at 20:00 Morphine Sulfate 4 mg 4 mg Q3H PRN IV PUSH PAIN 4-10 Last administered on 02:25; Start 11/05/16 at 19:15 Sodium Chloride (NS 500 ml Inj) 500 ml @ 500 mls/hr BOLUS ONCE IV Last administered on 11/05/16 19:15; Start 11/05/16 at 19:15; Stop 11/05/16 at 20:14 ; Status DC Lactobacillus Acidophilus (Lactinex) 1 tab TID PO Last administered on 12:02; Start 11/07/16 at 18:00 Acetaminophen/ Hydrocodone Bitart ([place] 5-325 Mg) 1 tab Q4H PRN PO pain 3-7 Last administered on 11/07/16 19:04; Start 11/07/16 at 14:45 Acetaminophen/ Hydrocodone Bitart ([place] 5-325 Mg) 2 tab Q4H PRN PO pain 8-10 ; Start 11/07/16 at 14:45 Potassium Chloride (KCl) 30 meq ONCE ONCE PO Last administered on 11/08/16 15 :29; Start 11/08/16 at 12:00; Stop 11/08/16 at 12:28; Status DC Simethicone (Phazyme Chew) 125 mg Q8HR PO Last administered on 11/09/16 05:56 ; Start 11/08/16 at 14:00 Diatrizoate Meglum/ Diatrizoate Sod ( Gastroview Liq) 18 ml ONCE ONCE PO Last administered on 11/09/16 08:49; Start 11/09/16 at 08:30; Stop 11/09/16 at 08:35; Status DC Iohexol (Omnipaque 350 Inj) 70 ml STK-MED ONCE IV Last administered on 10:36; Start 11/09/16 at 10:36; Stop 11/09/16 at 10:37; Status DC A/P Problem List: (1) Diverticulitis of intestine with abscess without bleeding ICD Code: K57.80 Status: Acute Assessment and Plan 51-year-old female with Diverticulitis of intestine with abscess without bleeding CT abdomen noted finding of new small abscess in the left mid lateral pelvis with air-fluid level and acute diverticulitis General surgery consulted and recommended interventional radiology, however per interventional radiology abscess too small at this time for percutaneous drainage. Patient ont Levaquin and Flagyl Parenteral pain management. Patient is on full liquid diet. She is tolerating it but has decreased appetite. Advance diet per general surgery. Repeat CT scan of the abdomen/pelvis showed continued extensive inflammatory changes sigmoid colon associated with long segment diverticulitis. There is the fluid collection containing air deep in the pelvis with tenuous percutaneous access. Interval development of small bilateral pleural effusions and trace ascites. Continue with IV antibiotics. Patient still has poor intake. Hypertension Continue current regimen. Vasotec when necessary Tachycardia - resolved Likely secondary to above secondary process Continue with management as in above DVT prophylaxis: Bilateral SCDs GI prophylaxis: PPI Pushpa Mao MD Nov 09, 2016 13:48
[2016-11-09 16:15] LABS: HEMATOCRIT 34.6 % (35.0-46.0); MEAN CORPUSCULAR HGB CONC 34.2 % (32.0-36.0); PLATELET COUNT 280 TH/MM3 (150-450); RED BLOOD COUNT 4.22 MIL/MM3 (4.00-5.30); RED CELL DISTRIBUTION WIDTH 14.5 % (11.6-17.2); REVIEW FLAG FINAL; WHITE BLOOD COUNT 7.6 TH/MM3 (4.0-11.0)
--- NOTE | 2016-11-09 16:25 | HHI.PR ---
Subjective Subjective Notes frustrated, anxious. Has not taken pain meds all day, then just recently got a gas pain. Has been up to bathroom, is voiding well. Passes small amount of gas and smear of bowel movement. Objective Vitals/I&O Vital Signs Date Time Temp Pulse Resp B/P Pulse Ox O2 Delivery O2 Flow Rate FiO2 11/09/16 15:34 Room Air 21 11/09/16 12:00 97.7 78 18 127/62 97 Labs Laboratory Tests Test 11/09/16 15:53 White Blood Count 7.6 Red Blood Count 4.22 Hemoglobin 11.8 Hematocrit 34.6 Mean Corpuscular Volume 82.0 Mean Corpuscular Hemoglobin 28.0 Mean Corpuscular Hemoglobin 34.2 Concent Red Cell Distribution Width 14.5 Platelet Count 280 Mean Platelet Volume 7.3 Abdomen: Non-distended, Other (mildly tender LLQ with no rebound) Extremities: No edema, Perfused A/P Assessment and Plan sigmoid diverticulitis with abscess. Fever curve improved, pain improved. Ct showed some mild INCREASE in inflammatory change, slight increase in size of abscess, small amount of ascites and tiny effusions. Discussed in detail with the patient. Options of urgent surgery and colon resection with colostomy vs continued IV abx and trying to avoid ostomy. We are not pushed into doing colostomy at this time and patient wishes to try to avoid that. Allen Atkinson MD Nov 09, 2016 16:25
[2016-11-09 16:36] LABS: BICARBONATE 22.9 MEQ/L (21.0-32.0)
[2016-11-09] MEDS: TEMAZEPAM 15 MG CAP PO PRN (21:09)
[2016-11-10] VITALS (7 sets, daily range): BP systolic 130–150; BP diastolic 62–80; PULSE 64–84; RESP 18–19; TEMP 97.7–98.8; O2SAT 95–99
[2016-11-10] MEDS: ACETAMINOPHEN 1000 MG/100 ML VIAL IV SCH ×4 (03:32→20:48)
[2016-11-10] MEDS: metroNIDAZOLE 500 MG INJ 100 ML IV SCH ×3 (03:33→18:33)
[2016-11-10] MEDS: MORPHINE SULFATE 4 MG/ML INJ IV PUSH PRN (03:34)
[2016-11-10] MEDS: SIMETHICONE 125 MG CHEWABLE TAB PO SCH ×3 (05:45→20:48)
[2016-11-10] MEDS: PANTOPRAZOLE SODIUM 40 MG VIAL IV PUSH SCH (08:59)
[2016-11-10] MEDS: LACTOBACILLUS ACIDOPHILUS TAB PO SCH ×3 (08:59→17:15)
[2016-11-10] MEDS: SODIUM CHLORIDE 0.9% FLUSH 10 ML FLUSH IV FLUSH SCH ×2 (09:00→20:48)
[2016-11-10] MEDS ORDERED: POTASSIUM CHLORIDE 10 MEQ CONTROLLED RELEASE TAB PO ONE (12:00)
[2016-11-10] MEDS: LEVOFLOXACIN 500 MG PREMIX INJ 100 ML IV SCH (12:32)
--- NOTE | 2016-11-10 13:15 | HHI.PR ---
Subjective Remarks Follow-up for a [facility] acute diverticulitis Patient stated abdominal pain has improved. She feels like it's gas. Deny nausea vomiting. Patient stated that she is eating better and she is now drinking smoothies. Pain is controlled. She stated that she is not asking for a lot of pain medication at all. She remains afebrile. Objective Vitals Vital Signs Date Time Temp Pulse Resp B/P Pulse Ox O2 Delivery O2 Flow Rate FiO2 11/10/16 08:00 98.2 75 18 150/78 99 11/10/16 04:00 97.7 84 18 137/80 97 11/10/16 00:00 97.7 65 18 130/64 96 11/09/16 20:00 99.4 76 18 148/68 97 11/09/16 20:00 Room Air 11/09/16 16:00 98.4 70 18 123/64 98 11/09/16 15:34 Room Air 21 I/O 11/09/16 11/09/16 11/09/16 11/10/16 11/10/16 11/10/16 07:00 15:00 23:00 07:00 15:00 23:00 Intake Total 240 ml 2183 ml 1025 ml Balance 240 ml 2183 ml 1025 ml Intake Oral 240 ml 240 ml IV Total 2183 ml 785 ml # Voids 2 2 # Bowel Movements 0 1 Result Diagram: 11/09/16 1553 11/09/16 1553 Objective Remarks GENERAL: In no acute distress CARDIOVASCULAR: Regular rate and rhythm without murmurs, gallops, or rubs. RESPIRATORY: Breath sounds equal bilaterally. No accessory muscle use. GASTROINTESTINAL: Abdomen soft, nondistended. mild tenderness palpation of left lower quadrant with deep pressure. Negative for any peritoneal signs. MUSCULOSKELETAL: No cyanosis, or edema. BACK: Nontender without obvious deformity. No CVA tenderness. Medications and IVs Current Medications Pantoprazole Sodium 40 mg 40 mg ONCE ONCE IVP Last administered on 11/05/16 09:14; Start 11/05/16 at 08:45; Stop 11/05/16 at 08:46; Status DC Sodium Chloride (NS 1000 ml Inj) 1,000 ml @ 1,000 mls/hr Q1H IV Last administered on 11/05/16 09:23; Start 11/05/16 at 08:41; Stop 11/05/16 at 09:40 ; Status DC Sodium Chloride (NS Flush) 2 ml UNSCH PRN IV FLUSH FLUSH AFTER USING IV ACCESS Last administered on 11/05/16 09:23; Start 11/05/16 at 08:45; Stop 11/05/16 at 14:36; Status DC Famotidine (Pepcid Inj) 20 mg ONCE ONCE IV PUSH Last administered on 09:24; Start 11/05/16 at 08:45; Stop 11/05/16 at 08:46; Status DC Dicyclomine HCl (Bentyl Inj) 20 mg ONCE ONCE IM Last administered on 09:15; Start 11/05/16 at 08:45; Stop 11/05/16 at 08:46; Status DC Ketorolac Tromethamine (Toradol Inj) 30 mg ONCE ONCE IVP Last administered on 11/05/16 09:14; Start 11/05/16 at 08:45; Stop 11/05/16 at 08:46; Status DC Hydromorphone HCl (Dilaudid Pf Inj) 1 mg ONCE ONCE IV PUSH Last administered on 11/05/16 09:14; Start 11/05/16 at 08:45; Stop 11/05/16 at 08:46; Status DC Iohexol 96 ml 96 ml STK-MED ONCE IV Last administered on 11/05/16 10:24; Start 11/05/16 at 10:24; Stop 11/05/16 at 10:25; Status DC Metronidazole 100 ml @ 100 mls/hr ONCE ONCE IV Last administered on 12:59; Start 11/05/16 at 11:00; Stop 11/05/16 at 11:59; Status DC Sodium Chloride 1,000 ml @ 1,000 mls/hr Q1H IV Last administered on 11/05/16 11:50; Start 11/05/16 at 10:58; Stop 11/05/16 at 11:57; Status DC Levofloxacin/ Dextrose (Levaquin 500 Mg Premix Inj) 100 ml @ 100 mls/hr ONCE ONCE IV Last administered on 11/05/16 11:51; Start 11/05/16 at 11:00; Stop 03/12 at 11:59; Status DC Hydromorphone HCl (Dilaudid Pf Inj) 1 mg ONCE ONCE IV PUSH Last administered on 11/05/16 12:59; Start 11/05/16 at 12:45; Stop 11/05/16 at 12:46; Status DC Ondansetron HCl (Zofran Inj) 4 mg ONCE ONCE IV PUSH Last administered on 13:05; Start 11/05/16 at 13:15; Stop 11/05/16 at 13:16; Status DC Ondansetron HCl 4 mg 4 mg Q6H PRN IV NAUSEA OR VOMITING; Start 11/05/16 at 14: 00; Stop 11/05/16 at 19:11; Status DC Sodium Chloride (NS 1000 ml Inj) 1,000 ml @ 70 mls/hr [id number] IV Last administered on 11/09/16 12:02; Start 11/05/16 at 14:10; Stop 11/09/16 at 13:46 ; Status DC Sodium Chloride (NS Flush) 2 ml UNSCH PRN IV FLUSH FLUSH AFTER USING IV ACCESS Last administered on 11/09/16 02:26; Start 11/05/16 at 14:15 Sodium Chloride (NS Flush) 2 ml BID IV FLUSH Last administered on 11/09/16 07: 40; Start 11/05/16 at 21:00 Acetaminophen (Tylenol) 650 mg Q4H PRN PO TEMP > 100.4 Last administered on 15:38; Start 11/05/16 at 14:15; Stop 11/05/16 at 19:03; Status DC Ondansetron HCl (Zofran Inj) 4 mg Q6H PRN IVP NAUSEA OR VOMITING Last administered on 11/08/16 19:37; Start 11/05/16 at 14:15 Temazepam (Restoril) 15 mg HS PRN PO INSOMNIA Last administered on 11/09/16 21 :09; Start 11/05/16 at 14:15 Acetaminophen (Tylenol) 650 mg Q6H PRN PO PAIN SCALE 1 TO 2; Start 11/05/16 at 14:15; Stop 11/05/16 at 19:03; Status DC Ketorolac Tromethamine (Toradol Inj) 15 mg Q6H PRN IVP Pain 3-5; if unable to take PO; Start 11/05/16 at 14:15; Stop 11/10/16 at 14:14 Ketorolac Tromethamine (Toradol Inj) 30 mg Q6H PRN IVP Pain 6-10;if unable to take PO; Start 11/05/16 at 14:15; Stop 11/10/16 at 14:14 Naloxone HCl 0.4 mg 0.4 mg UNSCH PRN IV SEE LABEL COMMENTS; Start 11/05/16 at 14:15 Metronidazole 100 ml @ 100 mls/hr Q8H IV Last administered on 11/10/16 11:32 ; Start 11/05/16 at 19:00 Levofloxacin/ Dextrose (Levaquin 500 Mg Premix Inj) 100 ml @ 100 mls/hr Q24H IV Last administered on 11/10/16 12:32; Start 11/06/16 at 12:00 Promethazine HCl (Phenergan Inj) 25 mg ONCE ONCE IM Last administered on 14:42; Start 11/05/16 at 14:30; Stop 11/05/16 at 14:36; Status DC Pantoprazole Sodium (Protonix Inj) 40 mg Q24H IV PUSH Last administered on 11/10 08:59; Start 11/06/16 at 09:00 Metoclopramide HCl (Reglan Inj) 5 mg Q6H PRN IV NAUSEA Last administered on 03:15; Start 11/05/16 at 15:15; Stop 11/08/16 at 19:11; Status DC Acetaminophen (Ofirmev Inj) 1,000 mg Q6H IV Last administered on 11/10/16 08: 58; Start 11/05/16 at 20:00 Morphine Sulfate 4 mg 4 mg Q3H PRN IV PUSH PAIN 4-10 Last administered on 03:34; Start 11/05/16 at 19:15 Sodium Chloride (NS 500 ml Inj) 500 ml @ 500 mls/hr BOLUS ONCE IV Last administered on 11/05/16 19:15; Start 11/05/16 at 19:15; Stop 11/05/16 at 20:14 ; Status DC Lactobacillus Acidophilus (Lactinex) 1 tab TID PO Last administered on 8/17/ 17at 12:31; Start 11/07/16 at 18:00 Acetaminophen/ Hydrocodone Bitart ([place] 5-325 Mg) 1 tab Q4H PRN PO pain 3-7 Last administered on 11/07/16 19:04; Start 11/07/16 at 14:45 Acetaminophen/ Hydrocodone Bitart ([place] 5-325 Mg) 2 tab Q4H PRN PO pain 8-10 ; Start 11/07/16 at 14:45 Potassium Chloride (KCl) 30 meq ONCE ONCE PO Last administered on 11/08/16 15 :29; Start 11/08/16 at 12:00; Stop 11/08/16 at 12:28; Status DC Simethicone (Phazyme Chew) 125 mg Q8HR PO Last administered on 11/10/16 05:45 ; Start 11/08/16 at 14:00 Diatrizoate Meglum/ Diatrizoate Sod ( Gastroview Liq) 18 ml ONCE ONCE PO Last administered on 11/09/16 08:49; Start 11/09/16 at 08:30; Stop 11/09/16 at 08:35; Status DC Iohexol (Omnipaque 350 Inj) 70 ml STK-MED ONCE IV Last administered on 10:36; Start 11/09/16 at 10:36; Stop 11/09/16 at 10:37; Status DC Potassium Chloride (KCl) 30 meq ONCE ONCE PO Last administered on 11/10/16 12 :31; Start 11/10/16 at 12:00; Stop 11/10/16 at 12:01; Status DC A/P Problem List: (1) Diverticulitis of intestine with abscess without bleeding ICD Code: K57.80 Status: Acute Assessment and Plan 51-year-old female with Diverticulitis of intestine with abscess without bleeding CT abdomen noted finding of new small abscess in the left mid lateral pelvis with air-fluid level and acute diverticulitis General surgery consulted and recommended interventional radiology, however per interventional radiology abscess too small at this time for percutaneous drainage. Patient ont Levaquin and Flagyl Parenteral pain management. Patient is on full liquid diet. She is tolerating it but has decreased appetite. Advance diet per general surgery. Repeat CT scan of the abdomen/pelvis showed continued extensive inflammatory changes sigmoid colon associated with long segment diverticulitis. There is the fluid collection containing air deep in the pelvis with tenuous percutaneous access. Interval development of small bilateral pleural effusions and trace ascites. Abscess worsening but clinically patient is doing better. At the moment she does not want any surgical intervention.. Continue with IV antibiotics. Patient still has poor intake. Hypertension Continue current regimen. Vasotec when necessary Tachycardia - resolved Likely secondary to above secondary process Continue with management as in above DVT prophylaxis: Bilateral SCDs GI prophylaxis: PPI Pushpa Mao MD Nov 10, 2016 13:15
--- NOTE | 2016-11-10 17:18 | HHI.PR ---
Subjective Subjective Notes Resting in bed Tolerating a smoothie her family brought her in Objective Vitals/I&O Vital Signs Date Time Temp Pulse Resp B/P Pulse Ox O2 Delivery O2 Flow Rate FiO2 11/10/16 15:36 Room Air 11/10/16 14:33 95 11/10/16 12:00 98.1 64 18 142/72 11/09/16 15:34 21 Cardiovascular: Regular Lungs: Clear Abdomen: Other (LLQ tenderness with palpation ) Extremities: No edema A/P Assessment and Plan 51 year old female with diverticulitis -Continue IV antibiotics -IVF -Pain control -Fulls liquids -Labs in AM Attending Statement feels so much better, no pain meds except tylenol and no discomfort in LLQ. plan transition to oral abx tomorrow, possible DC tomorrow afternoon or Monday. Follow up in office with me next week. Sasha Astorga Nov 10, 2016 17:18 Allen Atkinson MD Nov 10, 2016 17:51
[2016-11-10] MEDS: TEMAZEPAM 15 MG CAP PO PRN (22:12)
[2016-11-11] VITALS (8 sets, daily range): BP systolic 132–161; BP diastolic 63–81; PULSE 68–86; RESP 16–20; TEMP 97.4–98.8; O2SAT 94–99
[2016-11-11] MEDS: ACETAMINOPHEN 1000 MG/100 ML VIAL IV SCH ×2 (02:04→08:10)
[2016-11-11] MEDS: metroNIDAZOLE 500 MG INJ 100 ML IV SCH ×2 (03:03→11:05)
[2016-11-11] MEDS: SIMETHICONE 125 MG CHEWABLE TAB PO SCH ×5 (06:00→22:04)
[2016-11-11] MEDS: SODIUM CHLORIDE 0.9% FLUSH 10 ML FLUSH IV FLUSH SCH ×2 (08:10→21:00)
[2016-11-11] MEDS: PANTOPRAZOLE SODIUM 40 MG VIAL IV PUSH SCH (08:10)
[2016-11-11] MEDS: LACTOBACILLUS ACIDOPHILUS TAB PO SCH ×3 (08:11→17:28)
[2016-11-11 09:32] LABS: HEMATOCRIT 34.8 % (35.0-46.0); MEAN CELL VOLUME 80.8 FL (80.0-100.0); MEAN CORPUSCULAR HEMOGLOBIN 27.7 PG (27.0-34.0); MEAN CORPUSCULAR HGB CONC 34.3 % (32.0-36.0); PLATELET COUNT 334 TH/MM3 (150-450); RED BLOOD COUNT 4.31 MIL/MM3 (4.00-5.30); RED CELL DISTRIBUTION WIDTH 14.7 % (11.6-17.2); REVIEW FLAG FINAL; WHITE BLOOD COUNT 7.6 TH/MM3 (4.0-11.0)
[2016-11-11 09:50] LABS: BICARBONATE 26.3 MEQ/L (21.0-32.0)
[2016-11-11 09:52] LABS: POTASSIUM 3.1 MEQ/L (3.5-5.1)
[2016-11-11] MEDS ORDERED: POTASSIUM CHLORIDE 10 MEQ CONTROLLED RELEASE TAB PO ONE (12:00)
[2016-11-11] MEDS: LEVOFLOXACIN 500 MG PREMIX INJ 100 ML IV SCH (12:11)
--- NOTE | 2016-11-11 13:41 | HHI.PR ---
Subjective Remarks Follow-up for diverticulitis concave by abscess Patient stated them all pain has improved. She states swelling or intake. She states she is eating a lot more. Patient wants to try an oral medication except for [place]. Objective Vitals Vital Signs Date Time Temp Pulse Resp B/P Pulse Ox O2 Delivery O2 Flow Rate FiO2 11/11/16 11:29 94 21 11/11/16 08:00 98.3 68 20 156/81 96 11/11/16 04:00 98.1 70 18 135/63 97 11/11/16 00:00 97.4 70 18 132/69 98 11/11/16 00:00 Room Air 11/10/16 20:00 98.0 68 19 136/62 97 11/10/16 20:00 Room Air 11/10/16 16:00 98.8 64 18 142/72 97 11/10/16 15:36 Room Air 11/10/16 14:33 95 I/O 11/10/16 11/10/16 11/10/16 11/11/16 11/11/16 11/11/16 06:59 14:59 22:59 06:59 14:59 22:59 Intake Total 1025 ml 1002 ml 820 ml 680 ml Output Total 380 ml 300 ml 300 ml Balance 1025 ml 622 ml 520 ml 380 ml Intake Oral 240 ml 1002 ml 720 ml 480 ml IV Total 785 ml 100 ml 200 ml Output Urine Total 380 ml 300 ml 300 ml # Voids 2 3 2 # Bowel Movements 1 1 1 Result Diagram: 11/11/16 0742 11/11/16 0742 Objective Remarks GENERAL: In no acute distress CARDIOVASCULAR: Regular rate and rhythm without murmurs, gallops, or rubs. RESPIRATORY: Breath sounds equal bilaterally. No accessory muscle use. GASTROINTESTINAL: Abdomen soft, nondistended. neg TTP left lower quadrant. Negative for any peritoneal signs. MUSCULOSKELETAL: No cyanosis, or edema. BACK: Nontender without obvious deformity. No CVA tenderness. Medications and IVs Current Medications Pantoprazole Sodium 40 mg 40 mg ONCE ONCE IVP Last administered on 11/05/16t 09:14; Start 11/05/16 at 08:45; Stop 11/05/16 at 08:46; Status DC Sodium Chloride (NS 1000 ml Inj) 1,000 ml @ 1,000 mls/hr Q1H IV Last administered on 11/05/16 09:23; Start 11/05/16 at 08:41; Stop 11/05/16 at 09:40 ; Status DC Sodium Chloride (NS Flush) 2 ml UNSCH PRN IV FLUSH FLUSH AFTER USING IV ACCESS Last administered on 11/05/16 09:23; Start 11/05/16 at 08:45; Stop 11/05/16 at 14:36; Status DC Famotidine (Pepcid Inj) 20 mg ONCE ONCE IV PUSH Last administered on 09:24; Start 11/05/16 at 08:45; Stop 11/05/16 at 08:46; Status DC Dicyclomine HCl (Bentyl Inj) 20 mg ONCE ONCE IM Last administered on 09:15; Start 11/05/16 at 08:45; Stop 11/05/16 at 08:46; Status DC Ketorolac Tromethamine (Toradol Inj) 30 mg ONCE ONCE IVP Last administered on 11/05/16 09:14; Start 11/05/16 at 08:45; Stop 11/05/16 at 08:46; Status DC Hydromorphone HCl (Dilaudid Pf Inj) 1 mg ONCE ONCE IV PUSH Last administered on 11/05/16 09:14; Start 11/05/16 at 08:45; Stop 11/05/16 at 08:46; Status DC Iohexol 96 ml 96 ml STK-MED ONCE IV Last administered on 11/05/16 10:24; Start 11/05/16 at 10:24; Stop 11/05/16 at 10:25; Status DC Metronidazole 100 ml @ 100 mls/hr ONCE ONCE IV Last administered on 12:59; Start 11/05/16 at 11:00; Stop 11/05/16 at 11:59; Status DC Sodium Chloride 1,000 ml @ 1,000 mls/hr Q1H IV Last administered on 11/05/16 11:50; Start 11/05/16 at 10:58; Stop 11/05/16 at 11:57; Status DC Levofloxacin/ Dextrose (Levaquin 500 Mg Premix Inj) 100 ml @ 100 mls/hr ONCE ONCE IV Last administered on 11/05/16 11:51; Start 11/05/16 at 11:00; Stop 03/12 at 11:59; Status DC Hydromorphone HCl (Dilaudid Pf Inj) 1 mg ONCE ONCE IV PUSH Last administered on 11/05/16 12:59; Start 11/05/16 at 12:45; Stop 11/05/16 at 12:46; Status DC Ondansetron HCl (Zofran Inj) 4 mg ONCE ONCE IV PUSH Last administered on 13:05; Start 11/05/16 at 13:15; Stop 11/05/16 at 13:16; Status DC Ondansetron HCl 4 mg 4 mg Q6H PRN IV NAUSEA OR VOMITING; Start 11/05/16 at 14: 00; Stop 11/05/16 at 19:11; Status DC Sodium Chloride (NS 1000 ml Inj) 1,000 ml @ 70 mls/hr [id number] IV Last administered on 11/09/16 12:02; Start 11/05/16 at 14:10; Stop 11/09/16 at 13:46 ; Status DC Sodium Chloride (NS Flush) 2 ml UNSCH PRN IV FLUSH FLUSH AFTER USING IV ACCESS Last administered on 11/09/16 02:26; Start 11/05/16 at 14:15 Sodium Chloride (NS Flush) 2 ml BID IV FLUSH Last administered on 11/11/16 08: 10; Start 11/05/16 at 21:00 Acetaminophen (Tylenol) 650 mg Q4H PRN PO TEMP > 100.4 Last administered on 15:38; Start 11/05/16 at 14:15; Stop 11/05/16 at 19:03; Status DC Ondansetron HCl (Zofran Inj) 4 mg Q6H PRN IVP NAUSEA OR VOMITING Last administered on 11/08/16 19:37; Start 11/05/16 at 14:15 Temazepam (Restoril) 15 mg HS PRN PO INSOMNIA Last administered on 11/10/16 22 :12; Start 11/05/16 at 14:15 Acetaminophen (Tylenol) 650 mg Q6H PRN PO PAIN SCALE 1 TO 2; Start 11/05/16 at 14:15; Stop 11/05/16 at 19:03; Status DC Ketorolac Tromethamine (Toradol Inj) 15 mg Q6H PRN IVP Pain 3-5; if unable to take PO; Start 11/05/16 at 14:15; Stop 11/10/16 at 14:14; Status DC Ketorolac Tromethamine (Toradol Inj) 30 mg Q6H PRN IVP Pain 6-10;if unable to take PO; Start 11/05/16 at 14:15; Stop 11/10/16 at 14:14; Status DC Naloxone HCl 0.4 mg 0.4 mg UNSCH PRN IV SEE LABEL COMMENTS; Start 11/05/16 at 14:15 Metronidazole 100 ml @ 100 mls/hr Q8H IV Last administered on 11/11/16 11:05 ; Start 11/05/16 at 19:00 Levofloxacin/ Dextrose (Levaquin 500 Mg Premix Inj) 100 ml @ 100 mls/hr Q24H IV Last administered on 11/11/16 12:11; Start 11/06/16 at 12:00 Promethazine HCl (Phenergan Inj) 25 mg ONCE ONCE IM Last administered on 14:42; Start 11/05/16 at 14:30; Stop 11/05/16 at 14:36; Status DC Pantoprazole Sodium (Protonix Inj) 40 mg Q24H IV PUSH Last administered on 11/11 08:10; Start 11/06/16 at 09:00 Metoclopramide HCl (Reglan Inj) 5 mg Q6H PRN IV NAUSEA Last administered on 03:15; Start 11/05/16 at 15:15; Stop 11/08/16 at 19:11; Status DC Acetaminophen (Ofirmev Inj) 1,000 mg Q6H IV Last administered on 11/11/16 08: 10; Start 11/05/16 at 20:00 Morphine Sulfate 4 mg 4 mg Q3H PRN IV PUSH PAIN 4-10 Last administered on 03:34; Start 11/05/16 at 19:15 Sodium Chloride (NS 500 ml Inj) 500 ml @ 500 mls/hr BOLUS ONCE IV Last administered on 11/05/16 19:15; Start 11/05/16 at 19:15; Stop 11/05/16 at 20:14 ; Status DC Lactobacillus Acidophilus (Lactinex) 1 tab TID PO Last administered on 12:20; Start 11/07/16 at 18:00 Acetaminophen/ Hydrocodone Bitart ([place] 5-325 Mg) 1 tab Q4H PRN PO pain 3-7 Last administered on 11/07/16 19:04; Start 11/07/16 at 14:45 Acetaminophen/ Hydrocodone Bitart ([place] 5-325 Mg) 2 tab Q4H PRN PO pain 8-10 ; Start 11/07/16 at 14:45 Potassium Chloride (KCl) 30 meq ONCE ONCE PO Last administered on 11/08/16 15 :29; Start 11/08/16 at 12:00; Stop 11/08/16 at 12:28; Status DC Simethicone (Phazyme Chew) 125 mg Q8HR PO Last administered on 11/11/16 12:24 ; Start 11/08/16 at 14:00 Diatrizoate Meglum/ Diatrizoate Sod ( Gastroview Liq) 18 ml ONCE ONCE PO Last administered on 11/09/16 08:49; Start 11/09/16 at 08:30; Stop 11/09/16 at 08:35; Status DC Iohexol (Omnipaque 350 Inj) 70 ml STK-MED ONCE IV Last administered on 10:36; Start 11/09/16 at 10:36; Stop 11/09/16 at 10:37; Status DC Potassium Chloride (KCl) 30 meq ONCE ONCE PO Last administered on 11/10/16 12 :31; Start 11/10/16 at 12:00; Stop 11/10/16 at 12:01; Status DC Potassium Chloride (KCl) 30 meq ONCE ONCE PO Last administered on 11/11/16 12 :20; Start 11/11/16 at 12:00; Stop 11/11/16 at 12:01; Status DC A/P Problem List: (1) Diverticulitis of intestine with abscess without bleeding ICD Code: K57.80 Status: Acute Assessment and Plan 51-year-old female with Diverticulitis of intestine with abscess without bleeding CT abdomen noted finding of new small abscess in the left mid lateral pelvis with air-fluid level and acute diverticulitis General surgery consulted and recommended interventional radiology, however per interventional radiology abscess too small at this time for percutaneous drainage. Patient on IV Levaquin and Flagyl Parenteral pain management. Patient is on full liquid diet. She is tolerating it but has decreased appetite. Advance diet per general surgery. Repeat CT scan of the abdomen/pelvis showed continued extensive inflammatory changes sigmoid colon associated with long segment diverticulitis. There is the fluid collection containing air deep in the pelvis with tenuous percutaneous access. Interval development of small bilateral pleural effusions and trace ascites. Clinically patient is doing better. With Citrobacter to oral Levaquin and Flagyl. If she does well she can be discharge home tomorrow. Hypertension Continue current regimen. Vasotec when necessary Tachycardia - resolved Likely secondary to above secondary process Continue with management as in above DVT prophylaxis: Bilateral SCDs GI prophylaxis: PPI Discharge Planning Will switch patient to oral medication today and she does well with oral medication she can be discharge home tomorrow. Pushpa Mao MD Nov 11, 2016 13:41
[2016-11-11] MEDS ORDERED: oxyCODONE/ACETAMINOPHEN 5 MG/325 MG TAB PO PRN ×2 (13:45)
[2016-11-11] MEDS ORDERED: metroNIDAZOLE 500 MG TAB PO SCH (15:30)
--- NOTE | 2016-11-11 19:36 | HHI.PR ---
Subjective Subjective Notes Resting in bed Tolerating fulls Objective Vitals/I&O Vital Signs Date Time Temp Pulse Resp B/P Pulse Ox O2 Delivery O2 Flow Rate FiO2 11/11/16 17:38 99 21 11/11/16 16:00 98.8 86 20 141/79 11/11/16 00:00 Room Air Labs Laboratory Tests Test 11/11/16 07:42 White Blood Count 7.6 Red Blood Count 4.31 Hemoglobin 11.9 Hematocrit 34.8 Mean Corpuscular Volume 80.8 Mean Corpuscular Hemoglobin 27.7 Mean Corpuscular Hemoglobin 34.3 Concent Red Cell Distribution Width 14.7 Platelet Count 334 Mean Platelet Volume 7.2 Sodium Level 139 Potassium Level 3.1 Chloride Level 104 Carbon Dioxide Level 26.3 Anion Gap 9 Blood Urea Nitrogen 8 Creatinine 0.51 Estimat Glomerular Filtration 126 Rate Random Glucose 92 Calcium Level 8.1 Cardiovascular: Regular Lungs: Clear Abdomen: Non-distended, Other (minimal tenderness in LLQ with palpation ) Extremities: No edema A/P Assessment and Plan 51 year old female with diverticulitis -Transition to PO antibiotics -DC IVF -Pain control -Fulls liquids; low residue diet in AM Attending Note - Dr. Joseph Minimal LLQ pain to palpation Advance diet in AM; Possible discharge Sunday 11/12 The exam, history, and the medical decision-making described in the above note were completed with the assistance of the mid-level provider. I reviewed and agree with the findings presented. I attest that I had a [id number] encounter with the patient on the same day, and personally performed and documented my assessment and findings in the medical record. Sasha Astorga Nov 11, 2016 19:36 Vish Joseph MD Nov 12, 2016 13:25
[2016-11-11] MEDS ORDERED: METR-1 PO (19:39)
[2016-11-11] MEDS ORDERED: LEVA500T20 PO (19:39)
[2016-11-11] MEDS: metroNIDAZOLE 500 MG TAB PO SCH (22:04)
[2016-11-11] MEDS: ACETAMINOPHEN 325 MG TAB PO PRN (22:04)
[2016-11-12 00:07] VITALS: BP 140/73; PULSE 74; RESP 16; TEMP 98.5; O2SAT 98
[2016-11-12 04:00] VITALS: BP 135/65; PULSE 71; RESP 16; TEMP 97.9; O2SAT 97
[2016-11-12] MEDS: SIMETHICONE 125 MG CHEWABLE TAB PO SCH ×2 (06:00→14:04)
[2016-11-12] MEDS: metroNIDAZOLE 500 MG TAB PO SCH ×2 (06:20→14:04)
[2016-11-12] MEDS: ACETAMINOPHEN 325 MG TAB PO PRN (06:21)
[2016-11-12 08:01] VITALS: BP 131/77; PULSE 82; RESP 18; TEMP 97.9; O2SAT 98
[2016-11-12] MEDS: SODIUM CHLORIDE 0.9% FLUSH 10 ML FLUSH IV FLUSH SCH (10:08)
[2016-11-12] MEDS: PANTOPRAZOLE SODIUM 40 MG VIAL IV PUSH SCH (10:08)
[2016-11-12] MEDS: LACTOBACILLUS ACIDOPHILUS TAB PO SCH ×2 (10:08→14:04)
[2016-11-12] MEDS ORDERED: SIME1CHW11 PO (11:32)
[2016-11-12] MEDS ORDERED: OXYC1TAB63 PO (11:32)
[2016-11-12] MEDS ORDERED: LACT PO (11:32)
--- NOTE | 2016-11-12 11:33 | HHI.DCPOC ---
Discharge Care Plan Diagnosis: (1) Diverticulitis of intestine with abscess without bleeding Goals to Promote Your Health * To prevent worsening of your condition and complications * To maintain your health at the optimal level Directions to Meet Your Goals Take your medications as prescribed Follow your dietary instruction Follow activity as directed Keep your appointments as scheduled Take your immunizations and boosters as scheduled If your symptoms worsen call your PCP, if no PCP go to Urgent Care Center or Emergency Room Smoking is Dangerous to Your Health. Avoid second hand smoke Call the 24-hour hour crisis hotline for domestic abuse at Pushpa Mao MD Nov 12, 2016 11:33
--- NOTE | 2016-11-12 11:34 | HHI.DS ---
Discharge Summary Admission Date Nov 05, 2016 at 13:52 Discharge Date: Nov 12, 2016 Admitting Diagnosis complicated diverticulitis (1) Diverticulitis of intestine with abscess without bleeding ICD Code: K57.80 Diagnosis: Principal Procedures none Brief History - From Admission 51-year-old female recently diagnosed with diverticulitis on 11/03/16 and sent home on by mouth Augmentin, return to the ED for evaluation of worsening abdominal pain associated with worsening left lower quadrant abdominal pain rated 7/10 in intensity along with nausea and vomiting. She reported decrease by mouth intake over the past 2 days; however denies any febrile episode. CT abdomen reveals of finding of New small abscess in the left mid lateral pelvis with air-fluid level and Acute diverticulitis with mild increase inflammatory change. Patient denies any chest pain , GI bleed. CBC/BMP: 11/11/16 0742 11/11/16 0742 Significant Findings Laboratory Tests Test 11/09/16 11/11/16 15:53 07:42 Hematocrit 34.6 % 34.8 % (35.0-46.0) (35.0-46.0) Potassium Level 3.0 MEQ/L 3.1 MEQ/L (3.5-5.1) (3.5-5.1) Calcium Level 8.2 MG/DL 8.1 MG/DL (8.5-10.1) (8.5-10.1) Imaging Last Impressions Abdomen/Pelvis CT 11/09/16 0600 Signed Impressions: Service Date/Time: Wednesday, November 09, 2016 10:33 - CONCLUSION: Continued extensive inflammatory changes sigmoid colon associated with long segment diverticulitis. There is the fluid collection containing air deep in the pelvis with tenuous percutaneous access. Interval development of small bilateral pleural effusions and trace ascites. Kennedy Benson MD FACR PE at Discharge GENERAL: In no acute distress CARDIOVASCULAR: Regular rate and rhythm without murmurs, gallops, or rubs. RESPIRATORY: Breath sounds equal bilaterally. No accessory muscle use. GASTROINTESTINAL: Abdomen soft, nondistended. neg TTP left lower quadrant. Negative for any peritoneal signs. MUSCULOSKELETAL: No cyanosis, or edema. BACK: Nontender without obvious deformity. No CVA tenderness. Pt update on day of discharge Follow-up for diverticulitis, K by abscess Patient denies any dental pain. She states tolerating oral intake. Patient very anxious to go home. She says she is doing very well on all the oral medication. She remains afebrile. Hospital Course 51-year-old female with Diverticulitis of intestine with abscess without bleeding CT abdomen noted finding of new small abscess in the left mid lateral pelvis with air-fluid level and acute diverticulitis General surgery consulted and recommended interventional radiology, however per interventional radiology abscess too small at this time for percutaneous drainage. Patient initially put on IV Levaquin and Flagyl Repeat CT scan of the abdomen/pelvis showed continued extensive inflammatory changes sigmoid colon associated with long segment diverticulitis. There is the fluid collection containing air deep in the pelvis with tenuous percutaneous access. Interval development of small bilateral pleural effusions and trace ascites. Clinically patient is doing better so she was switched to oral Levaquin and Flagyl. She continued to do well on oral medication. Hypertension Continue current regimen. Vasotec when necessary Tachycardia - resolved Likely secondary to above secondary process Continue with management as in above Pt Condition on Discharge: Stable Discharge Disposition: Discharge Home Discharge Time: <= 30 minutes Discharge Instructions DIET: Follow Instructions for: As Tolerated, No Restrictions Activities you can perform: Regular-No Restrictions Follow up Referrals: PCP Follow-up - 2 Weeks Surgical - 1 Week with Allen Atkinson MD New Medications: Lactobacillus Acidophilus (Acidophilus/l-Sporogenes) 1 Tab Tab 1 TAB PO TID prevent diarrhea #30 Ref 0 TAB Levofloxacin (Levaquin) 500 Mg Tablet 500 MG PO DAILY@12 Infection Days 7 TAB Metronidazole (Flagyl) 500 Mg Tab 500 MG PO Q8HR Infection Days 7 TAB Oxycodone-Acetaminophen (Oxycodone-Acetaminophen) 5-325 mg Tab 1 TAB PO Q4H PRN moderate to severe pain #20 Ref 0 TAB Simethicone (Gas Relief Maximum Streng) 125 Mg Chw 125 MG PO Q8HR PRN GAS RETENTION #15 Ref 0 EA Discontinued Medications: Amoxicillin-Clavulanate (Augmentin) 875-125 Mg Tab 1 TAB PO BID Infection Days 10 Ref 0 TAB Lisinopril (Lisinopril) 2.5 Mg Tab 2.5 MG PO DAILY #30 Ref 0 TAB Pushpa Mao MD Nov 12, 2016 11:34
[2016-11-12] MEDS ORDERED: LEVOFLOXACIN 500 MG TAB PO SCH (12:00)
[2016-11-12 12:21] LABS: HEMATOCRIT 35.6 % (35.0-46.0); MEAN CELL VOLUME 81.2 FL (80.0-100.0); MEAN CORPUSCULAR HEMOGLOBIN 27.8 PG (27.0-34.0); MEAN CORPUSCULAR HGB CONC 34.3 % (32.0-36.0); PLATELET COUNT 365 TH/MM3 (150-450); RED BLOOD COUNT 4.38 MIL/MM3 (4.00-5.30); RED CELL DISTRIBUTION WIDTH 14.4 % (11.6-17.2); REVIEW FLAG FINAL
[2016-11-12 12:47] LABS: BICARBONATE 28.5 MEQ/L (21.0-32.0)
--- NOTE | 2016-11-12 13:27 | HHI.PR ---
Subjective Subjective Notes Feels well; tolerating diet Wants to go home Objective Vitals/I&O Vital Signs Date Time Temp Pulse Resp B/P Pulse Ox O2 Delivery O2 Flow Rate FiO2 11/12/16 12:48 98 Room Air 11/12/16 08:01 97.9 82 18 131/77 11/11/16 17:38 21 Labs Laboratory Tests Test 11/12/16 11:02 White Blood Count 8.0 Red Blood Count 4.38 Hemoglobin 12.2 Hematocrit 35.6 Mean Corpuscular Volume 81.2 Mean Corpuscular Hemoglobin 27.8 Mean Corpuscular Hemoglobin 34.3 Concent Red Cell Distribution Width 14.4 Platelet Count 365 Mean Platelet Volume 7.2 Sodium Level 139 Potassium Level 3.0 Chloride Level 103 Carbon Dioxide Level 28.5 Anion Gap 8 Blood Urea Nitrogen 9 Creatinine 0.57 Estimat Glomerular Filtration 111 Rate Random Glucose 107 Calcium Level 8.1 Abdomen: Non-distended, Non-tender A/P Assessment and Plan 51 year old female with diverticulitis Tolerating diet; doing well with PO antibiotics Home today Follow up Dr. Atkinson next week Vish Joseph MD Nov 12, 2016 13:27
== END 2016-11-12 15:45 | disposition home or self-care (01) | DRG 392 ==
LOC: PHED 08:14 → PHEDA 13:52 → N04B 17:40
PROVIDERS: ADMIT Family Medicine; ATTEND Family Medicine
DX: K57.20 Diverticulitis of large intestine with perforation and abscess without bleeding (principal); I10 Essential (primary) hypertension
CPT/HCPCS: 74177; 76937; 80048; 80053; 81001; 83605; 83690; 85025; 85027; 96361; 96365; 96367; 96372; 96375; 96376; C9113; J0131; J0500; J1170; J1885; J1956; J2270; J2405; J2550; J2765; J7030; J7040; Q9963; Q9967